=== PATIENT | female | born 1975 | race Caucasian/White ===

== ENCOUNTER 2020-06-16 09:40 | Outpatient (REF) | payer OTHER, SELFPAY ==
[2020-06-16 10:10] LABS: MANUAL DIFF FLAG NO
[2020-06-16 10:14] LABS: Basophils Percent Auto 0.4 % (0-2); Eosinophils Absolute Auto 0.8 X10*3/uL (0.0-0.4); Eosinophils Percent Auto 8.4 % (0-4); Hemoglobin 13.7 g/dl (12.0-16.0); Imm Gran Abs Auto 0.05 X10*3/uL (0.00-0.03); Imm Gran Pct Auto 0.5 % (0.0-0.4); Lymphocytes Absolute Auto 2.6 X10*3/uL (1.2-4.9); Lymphocytes Percent Auto 28.2 % (20-40); Mean Corpuscular HGB Conc 32.6 g/dl (31.0-35.0); Mean Corpuscular Hemoglobin 28.3 pg (27.0-33.0); Mean Corpuscular Volume 86.8 fL (80-98); Mean Platelet Volume 11.6 fL (9.4-12.3); Monocytes Absolute Auto 0.8 X10*3/uL (0.1-1.2); Monocytes Percent Auto 8.3 % (2-11); NRBC Pct Auto 0.4 /100WBC (0.0-0.2); Neutrophils Percent Auto 54.2 % (45-73); Platelet Count 188 X10*3/uL (160-400); Red Blood Count 4.84 X10*6/uL (4.20-5.50); Red Cell Distribution Width 14.3 % (11.0-16.0); White Blood Count 9.2 X10*3/uL (4.8-10.8)
[2020-06-26 22:54] LABS: JCV Antibody NEGATIVE; JCV Index Value 0.08
== END 2020-06-16 09:41 | disposition home or self-care (01) ==
LOC: HO.LAB 09:40
PROVIDERS: PCP Internal Medicine; Visit Provider Psychiatry & Neurology Neurology
DX: G35 Multiple sclerosis (principal)
CPT/HCPCS: 36415; 85025; 86711

== ENCOUNTER 2021-05-01 09:28 | Outpatient (REF) | payer OTHER, SELFPAY ==
[2021-05-01 09:50] LABS: MANUAL DIFF FLAG NO
[2021-05-01 10:03] LABS: Basophils Absolute Auto 0.1 X10*3/uL (0.0-0.2); Basophils Percent Auto 0.7 % (0-2); Eosinophils Absolute Auto 0.9 X10*3/uL (0.0-0.4); Eosinophils Percent Auto 11.9 % (0-4); Hematocrit 40.8 % (37-47); Hemoglobin 13.5 g/dl (12.0-16.0); Imm Gran Abs Auto 0.02 X10*3/uL (0.00-0.03); Imm Gran Pct Auto 0.3 % (0.0-0.4); Lymphocytes Absolute Auto 2.3 X10*3/uL (1.2-4.9); Lymphocytes Percent Auto 31.6 % (20-40); Mean Corpuscular HGB Conc 33.1 g/dl (31.0-35.0); Mean Corpuscular Hemoglobin 28.1 pg (27.0-33.0); Mean Corpuscular Volume 84.8 fL (80-98); Mean Platelet Volume 11.5 fL (9.4-12.3); Monocytes Absolute Auto 0.7 X10*3/uL (0.1-1.2); Monocytes Percent Auto 9.5 % (2-11); Neutrophils Absolute Auto 3.3 X10*3/uL (2.0-8.3); Platelet Count 193 X10*3/uL (160-400); Red Blood Count 4.81 X10*6/uL (4.20-5.50); White Blood Count 7.1 X10*3/uL (4.8-10.8)
[2021-05-08 02:32] LABS: JCV Antibody NEGATIVE
== END 2021-05-01 09:29 | disposition home or self-care (01) ==
LOC: HO.LAB 09:28
PROVIDERS: PCP Internal Medicine; Visit Provider Psychiatry & Neurology Neurology
DX: G35 Multiple sclerosis (principal)
CPT/HCPCS: 36415; 85025; 86711

== ENCOUNTER 2021-12-12 08:30 | Outpatient (REF) | payer OTHER, SELFPAY ==
[2021-12-12 08:53] LABS: MANUAL DIFF FLAG NO
[2021-12-12 08:57] LABS: Basophils Absolute Auto 0.1 X10*3/uL (0.0-0.2); Basophils Percent Auto 0.8 % (0-2); Eosinophils Absolute Auto 0.8 X10*3/uL (0.0-0.4); Eosinophils Percent Auto 9.7 % (0-4); Hematocrit 40.6 % (37.0-47.0); Hemoglobin 13.3 g/dl (12.0-16.0); Imm Gran Abs Auto 0.03 X10*3/uL (0.00-0.03); Imm Gran Pct Auto 0.4 % (0.0-0.4); Lymphocytes Percent Auto 39.2 % (20-40); Mean Corpuscular HGB Conc 32.8 g/dl (31.0-35.0); Mean Corpuscular Hemoglobin 27.8 pg (27.0-33.0); Mean Corpuscular Volume 84.9 fL (80.0-98.0); Mean Platelet Volume 11.2 fL (9.4-12.3); Monocytes Absolute Auto 0.7 X10*3/uL (0.1-1.2); Monocytes Percent Auto 8.8 % (2-11); NRBC Pct Auto 0.4 /100WBC (0.0-0.2); Neutrophils Absolute Auto 3.2 x10*3/uL (2.0-8.3); Neutrophils Percent Auto 41.1 % (45-73); Platelet Count 193 X10*3/uL (160-400); Red Blood Count 4.78 X10*6/uL (4.20-5.50); Red Cell Distribution Width 13.8 % (11.0-16.0); White Blood Count 7.7 X10*3/uL (4.8-10.8)
[2021-12-20 23:18] LABS: JCV Antibody NEGATIVE; JCV Index Value 0.14
== END 2021-12-12 08:31 | disposition home or self-care (01) ==
LOC: HO.LAB 08:30
PROVIDERS: PCP Internal Medicine; Visit Provider Psychiatry & Neurology Neurology
DX: G35 Multiple sclerosis (principal)
CPT/HCPCS: 36415; 85025; 86711

== ENCOUNTER 2022-09-27 07:55 | Outpatient (REF) | payer OTHER, SELFPAY ==
[2022-10-03 22:34] LABS: JCV Antibody NEGATIVE; JCV Index Value 0.09
== END 2022-09-27 07:56 | disposition home or self-care (01) ==
LOC: HO.LAB 07:55
PROVIDERS: PCP Internal Medicine; Visit Provider Psychiatry & Neurology Neurology
DX: G35 Multiple sclerosis (principal)
CPT/HCPCS: 36415; 86711

== ENCOUNTER 2022-12-06 08:11 | Outpatient (REF) | payer OTHER, SELFPAY ==
--- NOTE | ~2022-12-06 | MR_ITS ---
EXAMINATION: MR BRAIN WITHOUT AND WITH CONTRAST CLINICAL INFORMATION: Multiple sclerosis COMPARISON: MRI of the brain with and without contrast 09/07/2018 TECHNIQUE: Multiplanar multisequence MR imaging of the brain was obtained without and following the administration of 10 mL Gadavist intravenous contrast. FINDINGS: BRAIN PARENCHYMA New T2 hyperintense Lesions: None. Enhancing Lesions: None. Reduced Diffusion: None. Overall Disease [place]: >20 lesions. No change in multiple periventricular and juxtacortical white matter lesions compatible with known demyelinating disease. T1 Hypointensities ([place]): <5. Parenchymal Atrophy: None. Callosal Atrophy: None. OTHER: Moderate to severe diffuse paranasal sinus inflammatory disease , progressed compared to prior. There is worsening nasal cavity polyposis extending into the nasopharynx. Small right mastoid fluid. MR/MR head/brain wo/w con IMPRESSION: 1. Stable moderate to severe burden of demyelinating disease in the supratentorial brain. No evidence of active demyelination. 2. Progressive moderate to severe diffuse paranasal sinus inflammatory disease with worsening nasal cavity polyposis.
== END 2022-12-06 08:12 | disposition home or self-care (01) ==
LOC: HO.MRI 08:11
PROVIDERS: PCP Internal Medicine; Visit Provider Psychiatry & Neurology Neurology
DX: G35 Multiple sclerosis (principal)
CPT/HCPCS: 70553; A9585

== ENCOUNTER 2023-11-11 10:10 | Outpatient (REF) | payer OTHER, SELFPAY ==
[2023-11-11 11:52] LABS: Alanine Aminotransferase 43 U/L (0-31); Albumin Level 4.2 g/dL (3.5-5.0); Alkaline Phosphatase 66 U/L (39-117); Aspartate Amino Transferase 28 U/L (5-31); Bilirubin Direct 0.2 mg/dL (0.0-0.5); Bilirubin Total 0.7 mg/dL (0.0-1.0)
[2023-11-14 22:40] LABS: JCV Antibody NEGATIVE; JCV Index Value 0.13
== END 2023-11-11 10:11 | disposition home or self-care (01) ==
LOC: HO.LAB 10:10
PROVIDERS: Registered Nurse; PCP Internal Medicine; Visit Provider Internal Medicine
DX: G35 Multiple sclerosis (principal)
CPT/HCPCS: 36415; 80076; 86711

== ENCOUNTER 2023-12-13 16:17 | Emergency (ER) | payer OTHER, SELFPAY ==
--- NOTE | ~2023-12-13 | CT_ITS ---
EXAMINATION: CT SOFT TISSUE NECK WITH CONTRAST CLINICAL INFORMATION: Reason for Exam left sided neck swelling, recent portacath place COMPARISON: 01/19/2014 TECHNIQUE: Following the intravenous administration of 100 mL of Omnipaque 350 intravenous contrast, helical imaging was performed in the axial plane with generation of coronal and sagittal reformatted images. This CT examination was performed using dose optimization techniques as appropriate, variously including the following: *Automated exposure control *Adjustment of mA and/or kV according to patient size (this includes techniques or standardized protocols for targeted exams where dose is matched to indication/reason for exam; i.e. extremities or head) *Use of iterative reconstruction technique DLP: 865 mGy-cm FINDINGS: There is asymmetric, significant hypoattenuation throughout the right internal jugular vein which is suspicious for venous thrombosis. There is prominent surrounding perivenous edema and stranding. There is some asymmetric thickening of the overlying right sternocleidomastoid muscle, which could represent intramuscular hematoma in the setting of recent Port-A-Cath placement. Multiple asymmetrically enlarged right cervical lymph nodes are favored to be reactive. There is mild mass effect on the airway with leftward deviation. Mild stranding in the right parapharyngeal fat. Retropharyngeal edema is also noted. Bilateral carotid arteries are patent. The nasopharynx, oropharynx, and hypopharynx are patent. The epiglottis appears unremarkable. The mold stamper and repairer spaces appear unremarkable. Multiple small soft tissue nodules are again noted in the parotid glands, suspected to represent lymph nodes. The thyroid gland is unremarkable. The lung apices are clear. Visualized portions of the brain parenchyma are unremarkable. Partial opacification of the right mastoid air cells. Extensive sinonasal polyposis is redemonstrated. There is near complete opacification of the bilateral sphenoid sinuses and ethmoid air cells. Extensive opacification of the right maxillary sinus and slight mucosal thickening of the left maxillary sinus. Complete opacification of the right frontal sinus. Partially opacified left frontal sinus. The mandibular condyles are well-seated in the condylar fossa. No acute fracture is seen. CT/CT soft tissue neck w IV con IMPRESSION: 1. Asymmetric, significant hypoattenuation throughout the right internal jugular vein, suspicious for venous thrombosis. There is prominent surrounding edema and stranding as well as retropharyngeal edema. Slight leftward mass effect on the airway, which remains patent. 2. Asymmetric thickening of the overlying right sternocleidomastoid muscle, which could represent intramuscular hematoma in the setting of recent Port-A-Cath placement. 3. Multiple asymmetrically enlarged right cervical lymph nodes are favored to be reactive. 4. 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 This critical result was discussed with Dr. Fiore on 12/13/2023 10:21 PM, and it was ascertained that the content and urgency of the report was understood at the time of direct communication.
--- NOTE | 2023-12-13 16:56 | ED.GENADULT ---
HPI - General Adult General Chief complaint: General Medical Stated complaint: sever swelling,pain at iv port Time Seen by Provider: 12/13/23 19:12 Source: patient Mode of arrival: ambulatory Limitations: no limitations History of Present Illness HPI narrative: Patient is status post Port-A-Cath replacement on 12/04 for medication treatment for MS as she has difficult veins. Since 12/08 patient noticed increased pain in the neck going all the way to the parotid gland with increased pain on movement and will chewing pain increases no fever no chills Related Data Previous Rx's ?Medication ?Instructions ?Recorded apixaban 5 mg (74 tabs) tablets in 5 mg PO BID #74 ea 12/13/23 a dose pack (Eliquis DVT-PE Treat 30D Start) Allergies Allergy/AdvReac Type Severity Reaction Status Date / Time aspirin [ASA] Allergy Mild HIVES Verified 12/13/23 17:02 amantadine [AMANTADINE] Allergy Unknown SINUSITIS Verified 12/13/23 17:02 ibuprofen Allergy Unknown Sneezing Verified 12/13/23 17:02 modafinil [From PROVIGIL] Allergy Unknown SINUSITIS Verified 12/13/23 17:02 naproxen Allergy Unknown Sneezing Verified 12/13/23 17:02 Butalbital-APAP Allergy Unknown Sneezing Uncoded 12/13/23 17:02 Review of Systems Review of Systems: Yes all other systems are reviewed and are negative PMFSH Social History Social History Smoked in Last 30 Days: No Use of substances other than those prescribed or required for medical reasons: No Advance Directives: No Advance Directives Information Provided: No Patient : No Physical Exam ED Vital Signs: Vital Signs - 24 hr 12/13/23 16:57 12/13/23 19:56 12/13/23 22:42 Temperature 99.6 F 98.6 F 98.5 F Pulse Rate 133 H 104 H 117 H Respiratory Rate 18 20 20 Blood Pressure 182/106 H 141/62 H 153/76 H Pulse Oximetry 95 96 95 Oxygen Delivery Method Room Air Room Air Room Air 12/13/23 22:49 Temperature 98.5 F Pulse Rate 117 H Respiratory Rate 20 Blood Pressure 153/76 H Pulse Oximetry 95 Oxygen Delivery Method Room Air BMI result Body Mass Index 41.3 Appearance: Alert. Oriented X3. No acute distress. Eyes: PERRLA, No Nystagmus ENT: Pharynx normal. Oral Mucosa moist tender external jugular vein and angle of the mandible not very clear tenderness protein gland also no stone palpable in leeanne duct Neck: Normal inspection. Neck supple. CVS: Normal heart rate and rhythm. Pulses normal. Respiratory: No respiratory distress. Equal air entry bilateral, no wheezing/rales/rhonchi Abdomen: Soft and nontender. Bowel sounds are present, no mass palpable, no CVA tenderness Skin: Skin warm and dry. Normal skin color. Normal skin turgor. Extremities: No lower extremity edema. No calf tenderness Neuro: Oriented X 3. No motor deficit. Course Course Course Narrative: This is an RME: Additional HPI, ROS, PE not included below will be deferred to primary provider. RME assessment and note performed by: Genesis Rivera PA-C This is a 19-zult-tql-female, with a hx of MS requiring, presenting to the ER with complaints of right sided neck swelling. Patient states that on December 04, she had to get replacement of right SVC portacath replaced due to malfunctioning. This was [facility] at [facility] by Dr. Narayan. Patient states that she did not noticed symptoms until Friday where she developed chills tenderness, difficulty chewing and swallowing as well as left-sided neck swelling and pain. Discussed case with my attending physician, Dr. Fiore, who recommends IV placement and CT angio chest/neck to rule out occlusion Plan: Labs, CT angio chest, CT angio head and neck Medications Administered Discontinued Medications Generic Name Dose Route Start Last Admin Trade Name Freq PRN Reason Stop Dose Admin Apixaban 10 mg 12/13/23 22:33 12/13/23 22:41 Apixaban 5 Mg Tablet PO 12/13/23 22:34 10 mg ONCE ONE Administration Iohexol 100 ml 12/13/23 19:59 12/13/23 19:59 Iohexol 350 Mg/Ml 100 Ml Infus..Btl IV 12/13/23 20:00 100 ml ONCE ONE Administration Medical Decision Making Medical Decision Making [facility] Narrative: Patient with acute DVT of right IJV after Port-A-Cath placement case discussed with Dr. Espinal vascular advised to start on Eliquis and follow up as outpatient Differential Diagnosis Differential Diagnoses: The differential diagnosis associated with the presentation includes Acute JVD thrombus/parotitis/sialodenitis Admission/Observation Consideration of admission/observation: Escalation of care including admission/observation considered Consult Healthcare Provider Management of the patient was discussed with: Visual Merchandiser Dr. Espinal Lab Data MDM Lab Attestation statement: I reviewed the patient's lab results. 12/13/23 17:31 12/13/23 17:31 Labs: Lab Results 12/13/23 Range/Units 17:31 WBC 13.3 H (4.8-10.8) X10*3/uL RBC 4.92 (4.20-5.50) X10*6/uL Hgb 14.6 (12.0-16.0) g/dl Hct 42.7 (37.0-47.0) % MCV 86.8 (80.0-98.0) fL MCH 29.7 (27.0-33.0) pg MCHC 34.2 (31.0-35.0) g/dl RDW 13.6 (11.0-16.0) % Plt Count 223 (160-400) X10*3/uL MPV 10.8 (9.4-12.3) fL Immature Gran % (Auto) 0.5 H (0.0-0.4) % Neut % (Auto) 65.7 (45-73) % Lymph % (Auto) 21.7 (20-40) % [place] % (Auto) 9.9 (2-11) % Eos % (Auto) 1.7 (0-4) % Baso % (Auto) 0.5 (0-2) % Lymph # (Auto) 2.9 (1.2-4.9) X10*3/uL [place] # (Auto) 1.3 H (0.1-1.2) X10*3/uL Eos # (Auto) 0.2 (0.0-0.4) X10*3/uL Baso # (Auto) 0.1 (0.0-0.2) X10*3/uL Abs Immat Gran (auto) 0.06 H (0.00-0.03) X10*3/uL Absolute Neuts (auto) 8.7 H (2.0-8.3) x10*3/uL Absolute Nucleated RBC 0.000 (0.0-0.012) X10*3/uL Nucleated RBC % (auto) 0.0 (0.0-0.2) /100WBC PT 13.0 (11.1-13.3) SEC INR 1.1 (0.9-1.1) APTT 27.9 (26.0-36.8) SEC Sodium 140 (135-145) mmol/L Potassium 3.8 (3.3-5.1) mmol/L Chloride 103 (96-108) mmol/L Carbon Dioxide 28 (22-29) mmol/L Anion Gap 13 (12-20) BUN 12 (9-16) mg/dL Creatinine 0.74 (0.5-1.4) mg/dL Estim Creat Clear Calc 117.8 Estimated GFR > 60 Random Glucose 126 H (60-115) mg/dL Lactic Acid 1.1 (0.5-2.0) mmol/L Calcium 9.8 (8.4-10.2) mg/dL Magnesium 2.2 (1.6-2.6) mg/dL Total Bilirubin 0.9 (0.0-1.0) mg/dL Direct Bilirubin 0.3 (0.0-0.5) mg/dL AST 13 (5-31) U/L ALT 21 (0-31) U/L Alkaline Phosphatase 58 (39-117) U/L Troponin I High Sens < 2.7 (<3.5-17.0) ng/L Total Protein 7.9 (6.5-8.0) g/dL Albumin 4.3 (3.5-5.0) g/dL Lipase 13 (8-78) U/L Radiology Impression Discussion of test interpretation with radiology: I have reviewed the radiologist's reading. Radiologist Impression: [address] [address] [address] Scan Report Signed Patient: Fatmata Joseph MR#: [id number] : 1975 Acct:[id number] Age/Sex: 48 / F ADM Date: 12/13/23 Loc: .ED Attending Dr: Ordering Physician: Genesis Rivera Date of Service: 12/13/23 Procedure(s): CT soft tissue neck w IV con Accession Number(s): [id number] cc: Genesis Rivera; Davon Michael MD~ EXAMINATION: CT SOFT TISSUE NECK WITH CONTRAST CLINICAL INFORMATION: Reason for Exam left sided neck swelling, recent portacath place COMPARISON: 01/19/2014 TECHNIQUE: Following the intravenous administration of 100 mL of Omnipaque 350 intravenous contrast, helical imaging was performed in the axial plane with generation of coronal and sagittal reformatted images. This CT examination was performed using dose optimization techniques as appropriate, variously including the following: *Automated exposure control *Adjustment of mA and/or kV according to patient size (this includes techniques or standardized protocols for targeted exams where dose is matched to indication/reason for exam; i.e. extremities or head) *Use of iterative reconstruction technique DLP: 865 mGy-cm FINDINGS: There is asymmetric, significant hypoattenuation throughout the right internal jugular vein which is suspicious for venous thrombosis. There is prominent surrounding perivenous edema and stranding. There is some asymmetric thickening of the overlying right sternocleidomastoid muscle, which could represent intramuscular hematoma in the setting of recent Port-A-Cath placement. Multiple asymmetrically enlarged right cervical lymph nodes are favored to be reactive. There is mild mass effect on the airway with leftward deviation. Mild stranding in the right parapharyngeal fat. Retropharyngeal edema is also noted. Bilateral carotid arteries are patent. The nasopharynx, oropharynx, and hypopharynx are patent. The epiglottis appears unremarkable. The application designer spaces appear unremarkable. Multiple small soft tissue nodules are again noted in the parotid glands, suspected to represent lymph nodes. The thyroid gland is unremarkable. The lung apices are clear. Visualized portions of the brain parenchyma are unremarkable. Partial opacification of the right mastoid air cells. Extensive sinonasal polyposis is redemonstrated. There is near complete opacification of the bilateral sphenoid sinuses and ethmoid air cells. Extensive opacification of the right maxillary sinus and slight mucosal thickening of the left maxillary sinus. Complete opacification of the right frontal sinus. Partially opacified left frontal sinus. The mandibular condyles are well-seated in the condylar fossa. No acute fracture is seen. CT/CT soft tissue neck w IV con IMPRESSION: 1. Asymmetric, significant hypoattenuation throughout the right internal jugular vein, suspicious for venous thrombosis. There is prominent surrounding edema and stranding as well as retropharyngeal edema. Slight leftward mass effect on the airway, which remains patent. 2. Asymmetric thickening of the overlying right sternocleidomastoid muscle, which could represent intramuscular hematoma in the setting of recent Port-A-Cath placement. 3. Multiple asymmetrically enlarged right cervical lymph nodes are favored to be reactive. 4. 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 This critical result was discussed with Dr. Fiore on 12/13/2023 10:21 PM, and it was ascertained that the content and urgency of the report was understood at the time of direct communication. Discharge Plan Discharge Clinical Impression: Deep vein thrombosis Patient Disposition: Home, Self-Care Instructions: Deep Vein Thrombosis (ED) Additional Instructions: Take Eliquis as prescribed Follow-up with vascular/PCP Prescriptions: New Eliquis DVT-PE Treat 30D Start 5 mg (74 tabs) tablets,dose pack 5 mg PO BID Qty: 74 0RF Referrals: Rafael Espinal MD [Physician] - 2 weeks Interventions: ED Discharge Assessment Last Done: 12/13/23 22:49 Discharge Date/Time: 12/13/23 22:51 Print Language: Divehi
[2023-12-13 16:57] VITALS: BP 182/106; PULSE 133; RESP 18; TEMP 37.6; O2SAT 95; BMI 41.3
[2023-12-13 17:43] LABS: MANUAL DIFF FLAG NO
[2023-12-13 17:47] LABS: Basophils Absolute Auto 0.1 X10*3/uL (0.0-0.2); Basophils Percent Auto 0.5 % (0-2); Eosinophils Absolute Auto 0.2 X10*3/uL (0.0-0.4); Eosinophils Percent Auto 1.7 % (0-4); Hematocrit 42.7 % (37.0-47.0); Hemoglobin 14.6 g/dl (12.0-16.0); Imm Gran Abs Auto 0.06 X10*3/uL (0.00-0.03); Imm Gran Pct Auto 0.5 % (0.0-0.4); Lymphocytes Absolute Auto 2.9 X10*3/uL (1.2-4.9); Lymphocytes Percent Auto 21.7 % (20-40); Mean Corpuscular HGB Conc 34.2 g/dl (31.0-35.0); Mean Corpuscular Hemoglobin 29.7 pg (27.0-33.0); Mean Corpuscular Volume 86.8 fL (80.0-98.0); Mean Platelet Volume 10.8 fL (9.4-12.3); Monocytes Absolute Auto 1.3 X10*3/uL (0.1-1.2); Monocytes Percent Auto 9.9 % (2-11); Neutrophils Absolute Auto 8.7 x10*3/uL (2.0-8.3); Neutrophils Percent Auto 65.7 % (45-73); Platelet Count 223 X10*3/uL (160-400); Red Blood Count 4.92 X10*6/uL (4.20-5.50); Red Cell Distribution Width 13.6 % (11.0-16.0); White Blood Count 13.3 X10*3/uL (4.8-10.8)
[2023-12-13 17:58] LABS: INTERNATIONAL NORM RATIO 1.1 (0.9-1.1)
[2023-12-13 18:00] LABS: Lactic Acid 1.1 mmol/L (0.5-2.0); Partial Thromboplastin Time 27.9 SEC (26.0-36.8)
[2023-12-13 18:06] LABS: Alanine Aminotransferase 21 U/L (0-31); Albumin Level 4.3 g/dL (3.5-5.0); Alkaline Phosphatase 58 U/L (39-117); Anion Gap 13 (12-20); Aspartate Amino Transferase 13 U/L (5-31); Bilirubin Direct 0.3 mg/dL (0.0-0.5); Bilirubin Total 0.9 mg/dL (0.0-1.0); Blood Urea Nitrogen 12 mg/dL (9-16); Calcium 9.8 mg/dL (8.4-10.2); Carbon Dioxide 28 mmol/L (22-29); Chloride 103 mmol/L (96-108); Creatinine Clr Calc Pharmacy 117.8; Estimated Glomerular Filt Rate > 60; Glucose Random 126 mg/dL (60-115); Lipase 13 U/L (8-78); Magnesium 2.2 mg/dL (1.6-2.6); Potassium 3.8 mmol/L (3.3-5.1); Sodium 140 mmol/L (135-145); Total Protein 7.9 g/dL (6.5-8.0)
[2023-12-13 18:18] LABS: Troponin-I High Sensitivity < 2.7 ng/L (<3.5-17.0)
[2023-12-13 19:56] VITALS: BP 141/62; PULSE 104; RESP 20; TEMP 37; O2SAT 96
[2023-12-13] MEDS: iohexoL 350 MG/ML 100 ML INFUS..BTL IV (19:59)
[2023-12-13] MEDS: Apixaban 5 MG TABLET 10 MG PO (22:41)
[2023-12-13 22:42] VITALS: BP 153/76; PULSE 117; RESP 20; TEMP 36.9; O2SAT 95
[2023-12-13 22:49] VITALS: BP 153/76; PULSE 117; RESP 20; TEMP 36.9; O2SAT 95
== END 2023-12-13 22:51 | disposition home or self-care (01) ==
PROVIDERS: Physician Assistant Medical; Emergency Provider Internal Medicine; PCP Internal Medicine
DX: I82.C11 Acute embolism and thrombosis of right internal jugular vein (principal); M54.2 Cervicalgia; G35 Multiple sclerosis; Z95.828 Presence of other vascular implants and grafts; Z79.82 Long term (current) use of aspirin; Z79.899 Other long term (current) drug therapy
CPT/HCPCS: 36415; 70491; 80048; 80076; 83605; 83690; 83735; 84484; 85025; 85610; 85730; 87040; 99284; Q9967

== ENCOUNTER 2023-12-25 10:00 | Outpatient (AMB) | payer OTHER, SELFPAY ==
[2023-12-25 10:10] VITALS: BP 144/84; PULSE 80; O2SAT 98; BMI 41.5
--- NOTE | 2023-12-25 10:10 | A.OFFPC_ITS ---
Vital Signs 12/25/23 10:10 Height 5 ft 6 in Weight 257 lb BMI 41.5 BP 144/84 H Blood Pressure Location Lt brachial Position Sitting Pulse 80 Pulse Source Pulse Oximeter Pulse Oximetry (%) 98 Oxygen Delivery Method Room Air Intake Visit Reasons: Overdue Annual PE/last seen 2017 ([facility]) Allergies aspirin [ASA] Allergy (Mild, Verified 12/13/23 17:02) HIVES amantadine [AMANTADINE] Allergy (Unknown, Verified 12/13/23 17:02) SINUSITIS ibuprofen Allergy (Unknown, Verified 12/13/23 17:02) Sneezing modafinil [From PROVIGIL] Allergy (Unknown, Verified 12/13/23 17:02) SINUSITIS naproxen Allergy (Unknown, Verified 12/13/23 17:02) Sneezing Butalbital-APAP Allergy (Unknown, Uncoded 12/13/23 17:02) Sneezing Medication List - Last Reconciled 12/25/23 by Davon Michael MD apixaban (Eliquis DVT-PE Treat 30D Start) 5 mg PO BID levocetirizine (Xyzal) 5 mg PO DAILY natalizumab (Tysabri) 300 mg IV Q4W sertraline 50 mg PO DAILY Tobacco use date assessed: 12/25/23 Dental Screening Dental Screen Date: 12/25/23 Did you have a dental visit in the last 12 months?: No Did you have a dental problem in the last 6 months where you did not have access to dental care?: No Was dental information given to patient?: Patient has dentist HPI Overdue Annual PE/last seen 2017 ([facility]) HPI Details 48-year-old morbidly obese female with m ultiple sclerosis and 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 Colonoscopy is up-to-date 06/09/2021. Patient had a Port-A-Cath placed December 04 then complained of neck pain all the way to the parotid gland with right neck swelling developing chills and difficulty chewing and swallowing results showing DVT of the right IJV after Port-A-Cath placement. Patient is placed on Eliquis brain MRI done 01/07/2023 stable moderate to severe burden of demyelinating disease in the supratentorial brain progressive moderate to severe diffuse paranasal sinus inflammatory disease with worsening nasal cavity polyposis. PFSH Family History (Updated 12/25/23 @ 11:02 by Davon Michael MD) Father Hereditary hemochromatosis Paternal Grandmother Breast cancer Paternal Aunt Breast cancer Social History (Updated 12/25/23 @ 11:03 by Davon Michael MD) Alcohol intake: never Patient Tobacco Use Status: Never used Tobacco Current occupational status: employed Cognitive needs: No Hearing needs: No Vision needs: No Questionnaire PHQ-9 Over the last 2 weeks, how often have you been bothered by any of the following problems? 1. Little interest or pleasure in doing things: not at all 2. Feeling down, depressed, or hopeless: not at all 3. Trouble falling or staying asleep, or sleeping too much: not at all 4. Feeling tired or having little energy: not at all 5. Poor appetite or overeating: not at all 6. Feeling bad about yourself - or that you are a failure or have let yourself or your family down: not at all 7. Trouble concentrating on things, such as reading the newspaper or watching television: not at all 8. Moving or speaking so slowly that other people could have noticed. Or the opposite - being so fidgety or restless that you have been moving around a lot more than usual: not at all 9. Thoughts that you would be better off or of hurting yourself in some way: not at all Total score: 0 Source: Developed by Drs. Kain Garsia, Nataliia Crabtree, Ollie Calix and colleagues, with an educational xander from [employer] Thrive Questionnaire Date Thrive assessed: 12/25/23 I am a: Patient What is your living situation today?: I have a steady place to live Within the past 12 months, did the food you bought not last and you didn't have the money to get more?: Never true Within the past 12 months, did you worry whether your food would run out before you got money to buy more?: Never true Do you have trouble paying for medicines?: No Do you have trouble getting transportation to medical appointments?: No Do you have trouble paying your heating and electricity bill?: No Do you have trouble taking care of your child, family member or friend?: No Do you have trouble with day-to-day activities such as bathing, preparing meals, shopping, managing finances, etc.?: No Are you currently unemployed and looking for a job?: No Are you interested in more education?: No Please select the resources that you would like help with: None THRIVE Score: 0 AUDIT C Alcohol Use Questionnaire (AUDIT-C) 1. How often do you have a drink containing alcohol?: Never Total Score: 0 ADDIE-7 AMB Questionnaire ADDIE-7 Date ADDIE - 7 assessed: 12/25/23 Feeling nervous, anxious, or on edge: 0 = Not at all Not being able to stop or control worryin = Not at all Worrying too much about different things: 0 = Not at all Trouble relaxin = Not at all Being so restless that it is hard to sit still: 0 = Not at all Becoming easily annoyed or irritable: 0 = Not at all Feeling afraid as if something awful might happen: 0 = Not at all Total ADDIE-7 score (0-4 normal; 5-9 mild; 10-14 moderate; 15-21 severe): 0 Source: Developed by Drs. Kain Garsia, Nataliia Crabtree, Ollie Calix and colleagues, with an educational xander from [employer] Review of Systems Const Denies poor appetite and Denies weakness Eyes Denies no additional complaints ENT Reports Normal hearing present, Denies dizziness, Denies nasal congestion, Denies tinnitus and Denies sore throat Card Denies chest pain, Denies syncope, Denies rapid heart rate and Denies dyspnea Resp Denies cough and Denies dyspnea GI Denies change in stool character, Reports constipation, Denies diarrhea, Denies nausea and Denies vomiting Denies urinary frequency, Denies difficulty voiding and Denies dysuria Neuro Reports Normal hearing present, Denies confusion, Denies dizziness, Denies syncope and Denies weakness Psych Denies confusion Physical exam (Primary Care) Vital Signs: Last Vital Signs Pulse 80 12/25/23 10:10 BP 144/84 H 12/25/23 10:10 Pulse Ox 98 12/25/23 10:10 Oxygen Delivery Method Room Air 12/25/23 10:10 BMI result Body Mass Index 41.5 Tobacco/Smoking Status: Tobacco use Status Tobacco use date assessed 12/25/23 12/25/23 10:35 Patient Tobacco Use Status Never used Tobacco 12/25/23 10:35 PHQ-9: PHQ-9 Score PHQ-9: Total score 0 12/25/23 10:37 Thrive Assessment: Date of Thrive Assessment Date Thrive assessed 12/25/23 12/25/23 10:35 Const General: No confusion Orientation/consciousness: No confusion HENMT Head: Yes normocephalic Ears: external ears normal and TM's normal bilaterally Face and sinus: Yes normal facial exam Mouth: moist mucous membranes Throat: Yes tonsils normal Eyes Conjunctivae: conjunctivae normal Pupils: Equal, round and reactive pupils present and Pupil accommodation reflex normal Direct Ophthalmoscopy: normal light reflex Neck Neck: No lymphadenopathy Thyroid: Thyroid normal Chest Chest palpation & inspection: normal inspection of the chest Resp Effort & Inspection: normal respiratory effort and no audible wheezes Auscultation: clear to auscultation bilaterally, no crackles, no wheezes and lung sounds not diminished Cardio Rate: regular rate Rhythm: regular rhythm Peripheral pulses: radial pulses present and dorsalis pedis present GI Palpation (GI): no masses Auscultation: normal bowel sounds and normoactive bowel sounds Rectal Exam - Female: deferred Skin General skin exam: no rashes or lesions noted Rashes: no rashes Neuro General: No confusion Cranial nerves: Yes Equal, round and reactive pupils present and Yes Normal hearing present Cognition (Neuro): normal cognition Gait exam (Neuro): Normal gait present Motor exam (neuro): 5/5 motor strength present throughout Deep tendon reflexes (DTR's): Right brachioradialis reflex intensity grade: 2+, Left brachioradialis reflex intensity grade: 2+, Right patellar reflex intensity grade: 2+ and Left patellar reflex intensity grade: 2+ Extrem General: No edema Assessment and Plan Assessment & Plan (1) Annual physical exam: Code(s): Z00.00 - Encounter for general adult medical examination without abnormal findi ngs Plan: Patient is advised to eat healthy, keep well hydrated, keep active and have adequate sleep. (2) Multiple sclerosis: Code(s): G35 - Multiple sclerosis Plan: Patient continue to follow-up with Neurology (3) Internal jugular vein thrombosis: Comment: Novembersymmetric, significant hypoattenuation throughout the right internal jugular vein, suspicious for venous thrombosis. There is prominent surrounding edema and stranding as well as retropharyngeal edema. Slight leftward mass effect on the airway, which remains patent. 2. Asymmetric thickening of the overlying right sternocleidomastoid muscle, which could represent intramuscular hematoma in the setting of recent Port-A-Cath placement. 3. Multiple asymmetrically enlarged right cervical lymph nodes are favored to be reactive. 4. 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 Code(s): I82.C19 - Acute embolism and thrombosis of unspecified internal jugular vein (4) Morbid obesity: Code(s): E66.01 - Morbid (severe) obesity due to excess calories Plan: Patient has been placed on anticoagulation (5) Nasal polyposis: Code(s): J33.9 - Nasal polyp, unspecified (6) Generalized anxiety disorder: Code(s): F41.1 - Generalized anxiety disorder (7) GERD (gastroesophageal reflux disease): Code(s): K21.9 - Gastro-esophageal reflux disease without esophagitis (8) Optic neuritis: Comment: eye [facility] Code(s): H46.9 - Unspecified optic neuritis (9) Hypertension: Code(s): I10 - Essential (primary) hypertension (10) Impaired fasting blood sugar: Code(s): R73.01 - Impaired fasting glucose Orders: Orders Comprehensive Met. Panel Today R73.01 - Impaired fasting glucose Thyroid Stimulating Hormone Today R73.01 - Impaired fasting glucose D Dimer High Sensitivity Today R73.01 - Impaired fasting glucose Hemoglobin A1c Today R73.01 - Impaired fasting glucose Complete Blood Count Auto Diff Today R73.01 - Impaired fasting glucose Lipid Panel Today E78.00 - Pure hypercholesterolemia, unspecified, R73.01 - Impaired fasting glucose Vitamin B12 and Folate Today R73.01 - Impaired fasting glucose Vitamin D 25-OH Total Today R73.01 - Impaired fasting glucose Free T4 (Free Thyroxine) Today R73.01 - Impaired fasting glucose Referrals Hematology & Oncology Referral I82.C19 - Acute embolism and thrombosis of unspecified internal jugular vein Medications: New sertraline 100 mg PO DAILY 30 tabs 0RF F41.1 - Generalized anxiety disorder hydrochlorothiazide 12.5 mg PO DAILY 30 tabs 3RF I10 - Essential (primary) hypertension Coding Level of Care Code Est Pt Prev Care 40-64y(96828) Diagnoses Annual physical exam Z00.00 Multiple sclerosis G35 Internal jugular vein thrombosis I82.C19 Morbid obesity E66.01 Nasal polyposis J33.9 Generalized anxiety disorder F41.1 GERD (gastroesophageal reflux disease) K21.9 Optic neuritis H46.9 Hypertension I10 Impaired fasting blood sugar R73.01
== END 2023-12-25 11:20 | disposition home or self-care (01) ==
PROVIDERS: PCP Internal Medicine; Visit Provider Internal Medicine
DX: Z00.00 Encounter for general adult medical examination without abnormal findings (principal); G35 Multiple sclerosis; I82.C19 Acute embolism and thrombosis of unspecified internal jugular vein; J33.9 Nasal polyp, unspecified; F41.1 Generalized anxiety disorder; K21.9 Gastro-esophageal reflux disease without esophagitis; H46.9 Unspecified optic neuritis; I10 Essential (primary) hypertension; R73.01 Impaired fasting glucose
CPT/HCPCS: 99396

== ENCOUNTER → 2024-01-06 15:02 | Outpatient (BNV) | payer OTHER, SELFPAY | PROVIDERS: PCP Internal Medicine; Referring Provider Internal Medicine; Visit Provider Internal Medicine | DX: I82.C11 Acute embolism and thrombosis of right internal jugular vein (principal) | CPT/HCPCS: 99204; 99214 ==

== ENCOUNTER 2024-04-05 08:00 | Outpatient (REF) | payer OTHER, SELFPAY ==
[2024-04-05 08:18] LABS: MANUAL DIFF FLAG NO
[2024-04-05 09:00] LABS: Basophils Absolute Auto 0.1 X10*3/uL (0.0-0.2); Basophils Percent Auto 0.7 % (0-2); Eosinophils Absolute Auto 0.6 X10*3/uL (0.0-0.4); Hemoglobin 14.3 g/dl (12.0-16.0); Imm Gran Abs Auto 0.04 X10*3/uL (0.00-0.03); Imm Gran Pct Auto 0.5 % (0.0-0.4); Lymphocytes Absolute Auto 2.6 X10*3/uL (1.2-4.9); Lymphocytes Percent Auto 34.1 % (20-40); Mean Corpuscular Hemoglobin 28.7 pg (27.0-33.0); Mean Corpuscular Volume 84.3 fL (80.0-98.0); Mean Platelet Volume 11.3 fL (9.4-12.3); Monocytes Percent Auto 12.9 % (2-11); NRBC Pct Auto 0.4 /100WBC (0.0-0.2); Neutrophils Absolute Auto 3.4 x10*3/uL (2.0-8.3); Neutrophils Percent Auto 43.8 % (45-73); Platelet Count 141 X10*3/uL (160-400); Red Blood Count 4.98 X10*6/uL (4.20-5.50); White Blood Count 7.7 X10*3/uL (4.8-10.8)
[2024-04-05 09:08] LABS: Estimated Average Glucose 131 mg/dL; Hemoglobin A1c % 6.2 % (<6.0)
[2024-04-05 09:18] LABS: D Dimer High Sensitivity < 150 NG/ML
[2024-04-05 09:35] LABS: Alanine Aminotransferase 38 U/L (0-31); Albumin Level 4.1 g/dL (3.5-5.0); Alkaline Phosphatase 61 U/L (39-117); Anion Gap 12 (12-20); Aspartate Amino Transferase 29 U/L (5-31); Bilirubin Total 0.8 mg/dL (0.0-1.0); Blood Urea Nitrogen 13 mg/dL (9-16); Calcium 9.1 mg/dL (8.4-10.2); Carbon Dioxide 31 mmol/L (22-29); Chloride 102 mmol/L (96-108); Cholesterol 200 mg/dL (<200); Estimated Glomerular Filt Rate > 60; Glucose Random 154 mg/dL (60-115); HDL Cholesterol 46 mg/dL (>40); Iron 103 mcg/dL (30-160); LDL Cholesterol Calculated 131 mg/dL (<100); Percent Iron Saturation 39 % (15-50); Sodium 141 mmol/L (135-145); Total Iron Binding Capacity 266 mcg/dL (228-428); Triglycerides 119 mg/dL (<150); Unsaturated Iron Binding 163 ug/dL
[2024-04-05 10:25] LABS: Free T4 (Free Thyroxine) 0.85 ng/dL (0.71-1.85); Vitamin D 25-OH Total 12.1 ng/mL (>30)
[2024-04-05 10:30] LABS: Ferritin 138 ng/mL (10-250); Thyroid Stimulating Hormone 2.15 uIU/mL (0.32-4.0)
[2024-04-05 10:37] LABS: Folate 5.9 ng/mL (> or = 4.0); Vitamin B12 479 pg/mL (200-900)
== END 2024-04-05 08:01 | disposition home or self-care (01) ==
LOC: HO.LAB 08:00
PROVIDERS: Absent Provider Internal Medicine; PCP Internal Medicine; Visit Provider Internal Medicine
DX: R73.01 Impaired fasting glucose (principal); I82.C19 Acute embolism and thrombosis of unspecified internal jugular vein; E78.00 Pure hypercholesterolemia, unspecified
CPT/HCPCS: 36415; 80053; 80061; 82306; 82607; 82728; 82746; 83036; 83540; 84439; 84443; 85025; 85379

== ENCOUNTER 2024-05-14 09:29 | Outpatient (AMB) | payer OTHER, SELFPAY ==
[2024-05-14 09:35] VITALS: BP 140/88; PULSE 82; O2SAT 97; BMI 41.6
--- NOTE | 2024-05-14 09:35 | MHC.PC.OV ---
Vital Signs 05/14/24 09:35 Height 5 ft 6 in Weight 258 lb BMI 41.6 BP 140/88 H Blood Pressure Location Lt brachial Position Sitting Pulse 82 Pulse Source Pulse Oximeter Pulse Oximetry (%) 97 Oxygen Delivery Method Room Air Intake Visit Reasons: Hypertension Allergies aspirin [ASA] Allergy (Mild, Verified 05/14/24 09:35) HIVES amantadine [AMANTADINE] Allergy (Unknown, Verified 05/14/24 09:35) SINUSITIS ibuprofen Allergy (Unknown, Verified 05/14/24 09:35) Sneezing modafinil [From PROVIGIL] Allergy (Unknown, Verified 05/14/24 09:35) SINUSITIS naproxen Allergy (Unknown, Verified 05/14/24 09:35) Sneezing Butalbital-APAP Allergy (Unknown, Uncoded 05/14/24 09:35) Sneezing Tobacco use date assessed: 12/25/23 Dental Screening Dental Screen Date: 05/14/24 Did you have a dental visit in the last 12 months?: No Did you have a dental problem in the last 6 months where you did not have access to dental care?: No Was dental information given to patient?: Patient has dentist HPI Hypertension HPI Details 48-year-old morbidly obese female with multiple sclerosis history of internal jugular vein thrombosis on apixaban generalized anxiety disorder GERD hypertension impaired glucose tolerance last seen in 01/08/2024. Patient's mammogram is due normal colonoscopy in 2020. Review of the notes was seen by hematology oncology in April 15 right internal jugular thrombosis 12/08/2023 this is in relation to MediPort placement. Patient also had a right cervical lymph node most likely reactive and paranasal sinus opacification with sinonasal polyposis. Patient was advised long-term anticoagulation due to MediPort in the right IJ. Patient has also history of hereditary hemochromatosis advised low iron foods avoiding alcohol excess. [facility] Medical History (Updated 05/14/24 @ 18:41 by Davon Michael MD) Impaired fasting blood sugar Hereditary hemochromatosis Port-A-Cath in place Family History Father Hereditary hemochromatosis Paternal Grandmother Breast cancer Paternal Aunt Breast cancer Social History Household Members: Spouse and Family Alcohol intake: never Patient Tobacco Use Status: Never used Tobacco Tobacco use type: Cigarette e-Cigarette/Vaping Use: Never Used Second Hand Smoke Exposure: No service: No Current occupational status: employed Cognitive needs: No Hearing needs: No Vision needs: No Questionnaire PHQ-9 Over the last 2 weeks, how often have you been bothered by any of the following problems? 1. Little interest or pleasure in doing things: not at all 2. Feeling down, depressed, or hopeless: not at all 3. Trouble falling or staying asleep, or sleeping too much: not at all 4. Feeling tired or having little energy: not at all 5. Poor appetite or overeating: not at all 6. Feeling bad about yourself - or that you are a failure or have let yourself or your family down: not at all 7. Trouble concentrating on things, such as reading the newspaper or watching television: not at all 8. Moving or speaking so slowly that other people could have noticed. Or the opposite - being so fidgety or restless that you have been moving around a lot more than usual: not at all 9. Thoughts that you would be better off or of hurting yourself in some way: not at all Total score: 0 Depression Screening Interpretation: Negative Depression Screening Done: Yes Source: Developed by Drs. Kain Garsia, Ollie Joshi and colleagues, with an educational xander from [employer]. Thrive Questionnaire Date Thrive assessed: 12/25/23 AUDIT C Alcohol Use Questionnaire (AUDIT-C) 1. How often do you have a drink containing alcohol?: Never Total Score: 0 ADDIE-7 AMB Questionnaire ADDIE-7 Date ADDIE - 7 assessed: 12/25/23 Source: Developed by Drs. Kain Garsia, Ollie Joshi and colleagues, with an educational xander from [employer]. Physical exam (Primary Care) Vital Signs: Last Vital Signs Pulse 82 05/14/24 09:35 BP 140/88 H 05/14/24 09:35 Pulse Ox 97 05/14/24 09:35 Oxygen Delivery Method Room Air 05/14/24 09:35 BMI result Body Mass Index 41.6 Tobacco/Smoking Status: Tobacco use Status Tobacco use date assessed 12/25/23 05/14/24 09:42 Patient Tobacco Use Status Never used Tobacco 05/14/24 09:42 Tobacco use type Cigarette 05/14/24 09:42 e-Cigarette/Vaping Use Never Used 05/14/24 09:42 PHQ-9: PHQ-9 Score PHQ-9: Total score 0 05/14/24 10:51 Depression Screening Interpretation: Negative Thrive Assessment: Date of Thrive Assessment Date Thrive assessed 12/25/23 05/14/24 09:42 Const General: alert; No acute distress Eyes Conjunctivae: conjunctivae normal Resp Auscultation: clear to auscultation bilaterally Cardio Rate: regular rate Rhythm: regular rhythm GI Inspection: Yes normal to inspection Extrem General: Yes normal to inspection and No edema Office Procedures Flu Questionnaire Does the patient have a severe egg allergy?: No Does the patient have severe life threatening allergies?: No Does the patient have a fever or illness today?: No Has the patient ever had Guillain-[place] Syndrome?: No Has the patient ever had any past reaction to a flu shot?: No Results AMB Hemoglobin A1c AMB Hemoglobin A1c 6.2 % Last Edit by Rosa Herbert CMA on 05/14/24 10:51 Immunizations Fluarix Triv [id number] (PF) 45 mcg (15 mcg x 3)/0.5 mL IM syringe Performing Provider: Davon Michael MD [facility] [place] [facility] Documented (not given) by: Rosa Herbert CMA on 05/14/24 09:43 Reason Not Given: Patient Refused Results Reviewed Results Reviewed: Laboratory Last Values Hgb A1c (Clinic) 6.2 % (4.0-6.0) H 05/14/24 09:55 Coding Level of Care Code Est Pt Level 4 (49524) Complex EM visit Add On G2211 Diagnoses Type 2 diabetes mellitus with hyperglycemia, without long-term current use of insulin E11.65 Diabetes mellitus penitentiary insulin use: without termination clerk use Hypercholesterolemia E78.00 Primary hypertension I10 Hypertension type: primary hypertension Gastroesophageal reflux disease without esophagitis K21.9 Esophagitis presence: without esophagitis 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 Laterality: right Multiple sclerosis G35 Morbid obesity E66.01 Mild intermittent asthma without complication J45.20 Asthma severity: mild Asthma persistence: intermittent Asthma complication type: uncomplicated Assessment & Plan Assessment & Plan (1) Type 2 diabetes mellitus with hyperglycemia: Code(s): E11.65 - Type 2 diabetes mellitus with hyperglycemia Category: Medical Qualifiers: Diabetes mellitus termination clerk insulin use: without penitentiary use Qualified Code(s): E11.65 - Type 2 diabetes mellitus with hyperglycemia Plan: Decrease the amount of carbohydrate intake, pasta, bread, rice and potatoes are all sugar and that is aside from all the sweet stuff, remember that fruits are good but they are Sweet also. Hemoglobin A1c goal of less than 6.5. Patient is under control discussed about eye exam discussed about diet discussed about getting urine tested yearly. (2) Hypercholesterolemia: Code(s): E78.00 - Pure hypercholesterolemia, unspecified Category: Medical Plan: Avoid fried foods, chicken skin, eggs, butter margarine, pastries and meat. Be it pork or beef they have a lot of cholesterol LDL goal of less than 100 and triglyceride of less than 150. (3) Hypertension: Code(s): I10 - Essential (primary) hypertension Category: Medical Qualifiers: Hypertension type: primary hypertension Qualified Code(s): I10 - Essential (primary) hypertension Plan: Continue with blood pressure medication. Decrease salt intake and exercise patient on hydrochlorothiazide 12.5 mg once a day (4) GERD (gastroesophageal reflux disease): Code(s): K21.9 - Gastro-esophageal reflux disease without esophagitis Category: Medical Qualifiers: Esophagitis presence: without esophagitis Qualified Code(s): K21.9 - Gastro-esophageal reflux disease without esophagitis Plan: Avoid the foods that causes that usually spicy foods, tomato products, juices, coffee, soda and foods that your sensitive to. After eating do not lie down, allow 3-4 hours before in lie down. And keep the head of bed above 30 degrees to avoid the acid from going up. (5) Internal jugular vein thrombosis: Comment: Novembersymmetric, significant hypoattenuation throughout the right internal jugular vein, suspicious for venous thrombosis. There is prominent surrounding edema and stranding as well as retropharyngeal edema. Slight leftward mass effect on the airway, which remains patent. 2. Asymmetric thickening of the overlying right sternocleidomastoid muscle, which could represent intramuscular hematoma in the setting of recent Port-A-Cath placement. 3. Multiple asymmetrically enlarged right cervical lymph nodes are favored to be reactive. 4. 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 Code(s): I82.C19 - Acute embolism and thrombosis of unspecified internal jugular vein Category: Medical Qualifiers: Laterality: right Qualified Code(s): I82.C11 - Acute embolism and thrombosis of right internal jugular vein Plan: Patient has seen hematology oncology patient is on anticoagulation and because of the MediPort will have this long-term. (6) Multiple sclerosis: Code(s): G35 - Multiple sclerosis Category: Medical Plan: Continue to follow-up with Neurology as well as treatment. (7) Morbid obesity: Code(s): E66.01 - Morbid (severe) obesity due to excess calories Category: Medical Plan: Diet and exercise (8) Asthma: Code(s): J45.909 - Unspecified asthma, uncomplicated Category: Medical Qualifiers: Asthma severity: mild Asthma persistence: intermittent Asthma complication type: uncomplicated Qualified Code(s): J45.20 - Mild intermittent asthma, uncomplicated Plan: Refill on albuterol done Orders: Orders AMB Hemoglobin A1c Today Z13.9 - Encounter for screening, unspecified Microalbumin, Random (w Creat) 3 Months E11.65 - Type 2 diabetes mellitus with hyperglycemia Creatinine Urine 3 Months E11.65 - Type 2 diabetes mellitus with hyperglycemia Hemoglobin A1c 3 Months E78.00 - Pure hypercholesterolemia, unspecified Influenza [id number] Immunization Today Z23 - Encounter for immunization Lipid Panel 3 Months E78.00 - Pure hypercholesterolemia, unspecified Comprehensive Met. Panel 3 Months E78.00 - Pure hypercholesterolemia, unspecified Medications: New albuterol sulfate 90 mcg/actuation (Proventil HFA) 2 puffs inhalation Q4-6H PRN 8.5 grams 0RF Shortness Of Breath J45.909 - Unspecified asthma, uncomplicated Discontinued apixaban (Eliquis DVT-PE Treat 30D Start) Discontinued Reason: Patient Completed Course 5 mg PO BID 74 ea 0RF
== END 2024-05-14 10:17 | disposition home or self-care (01) ==
PROVIDERS: PCP Internal Medicine; Visit Provider Internal Medicine
DX: E11.65 Type 2 diabetes mellitus with hyperglycemia (principal); I82.C11 Acute embolism and thrombosis of right internal jugular vein; E66.01 Morbid (severe) obesity due to excess calories; Z68.41 Body mass index [BMI] 40.0-44.9, adult; G35 Multiple sclerosis; E78.00 Pure hypercholesterolemia, unspecified; I10 Essential (primary) hypertension; K21.9 Gastro-esophageal reflux disease without esophagitis; J45.20 Mild intermittent asthma, uncomplicated

== ENCOUNTER → 2024-05-14 09:29 | Outpatient (BNVA) | payer OTHER, SELFPAY | PROVIDERS: PCP Internal Medicine; Visit Provider Internal Medicine | DX: E11.65 Type 2 diabetes mellitus with hyperglycemia (principal); E78.00 Pure hypercholesterolemia, unspecified; I10 Essential (primary) hypertension; K21.9 Gastro-esophageal reflux disease without esophagitis; I82.C11 Acute embolism and thrombosis of right internal jugular vein; G35 Multiple sclerosis; E66.01 Morbid (severe) obesity due to excess calories; Z68.41 Body mass index [BMI] 40.0-44.9, adult; J45.20 Mild intermittent asthma, uncomplicated; Z79.01 Long term (current) use of anticoagulants; Z79.899 Other long term (current) drug therapy; Z28.21 Immunization not carried out because of patient refusal | CPT/HCPCS: 83036; 90471; 96127 ==

== ENCOUNTER 2024-06-27 | Outpatient (REF) | payer OTHER, SELFPAY ==
--- NOTE | ~2024-06-27 | MR_ITS ---
EXAMINATION: MR CERVICAL SPINE WITHOUT AND WITH CONTRAST CLINICAL INFORMATION: Follow-up multiple sclerosis. COMPARISON: 07/30/2013 MR cervical TECHNIQUE: MRI of the cervical spine was obtained using routine sequences with and without contrast. Intravenous contrast: Gadavist 10 mL. Examination was performed on a 1.5 Eliza high-field Siemens unit, using standard sequences. FINDINGS: CORONAL ALIGNMENT: -Normal SAGITTAL ALIGNMENT: -Normal. -Normal lordosis. -No subluxation. CRANIOCERVICAL JUNCTION/C1-2 ARTICULATIONS: -Intact and aligned. VERTEBRAL BODIES/BONE MARROW: -No compression deformities, bone marrow edema, or abnormal infiltrating bone marrow signal. DISCS: -There is mild loss of disc height and signal at C5-6. -There is otherwise only mild loss of disc signal with preservation of height. CERVICAL CORD: -There is no cord atrophy, thinning, or expansion. There is no abnormal intra or extra medullary enhancement. -There are numerous T2 signal hyperintense cord lesions: -Right lateral column lesion spanning the C1 level (series 10, images 3-5). -Central cord lesion at the level of the proximal dens (series 10, image 8). -Subtle left posterior column lesion at the superior endplate of C3 (series 10, image 12). -Subtle holocord lesion at the superior endplate of C4 extending caudally to the superior endplate of C6 (series 10, image 16-22). -Right lateral and dorsal column lesion superior one third C7 level, spanning the superior third T1 level (series 10, images 29-32). -There are additional thoracic cord lesions in the upper thoracic spine only seen on the sagittal sequences. -No abnormal enhancing lesion identified to suggest active demyelination. PARAVERTEBRAL SOFT TISSUES: -Normal. Saturation band obscures the thyroid. -Prominent polyploid T2 hyperintense soft tissue in the posterior nasopharynx consistent with polyposis. VISUALIZED INTRACRANIAL STRUCTURES: -Posterior fossa structures normal. Refer to dedicated MR brain performed concurrently. AXIAL DISC SPACE IMAGING: C2-C3: There is mild bilateral facet hypertrophy. There is no central canal or neural foraminal narrowing. C3-C4: Minimal shallow bulging disc without significant mass effect. Mild to moderate bilateral uncinate and facet spurs. No central canal narrowing. There is moderate right and mild left neural foraminal narrowing. C4-C5: Shallow diffuse disc bulge present without significant mass effect. There is no central canal narrowing. Prominent uncinate spurring right greater than left and mild bilateral facet spurring. There is mild to moderate right and mild left neural foraminal narrowing. C5-C6: There is a shallow disc osteophytic bulge at this level, indenting on the ventral thecal sac but not contacting the cord. There is minimal central canal narrowing. Mild bilateral facet spurring, and uncinate spurring right greater than left, resulting in mild to moderate right greater than left neural foraminal narrowing. No central canal or lateral recess narrowing. C6-C7: No disc pathology. No central canal or lateral recess narrowing. Moderate hypertrophic degenerative facet and uncinate changes, contribute to mild to moderate bilateral neural foraminal narrowing. C7-T1: No focal disc pathology. No central canal or lateral recess narrowing. Mild bilateral neural foraminal narrowing secondary to mild facet hypertrophy right greater than left. MR/MR cervical spine wo/w con IMPRESSION: 1. There are numerous demyelinating lesions throughout the cervical and upper thoracic cord as discussed, without enhancing lesion to suggest active demyelination. These appear similar to the prior examination although direct comparison is difficult, as the new Siemens magnet has much better resolution resolution and [id number] than the prior magnet. There is no cord atrophy, thinning, or expansion. 2. Mild spondylosis, stable, without evidence of significant central canal narrowing or nerve root impingement. 3. See above for details and ancillary findings. Electronically signed by: Huy Nelson MD 07/07/2024 11:42 AM [facility]
--- NOTE | ~2024-06-27 | MR_ITS ---
EXAMINATION: MR BRAIN WITHOUT AND WITH CONTRAST CLINICAL INFORMATION: MS, follow-up for disease progression. COMPARISON: Numerous prior exams, most recently 12/06/2022. TECHNIQUE: Multiplanar multisequence MR imaging of the brain was done prior to and following intravenous administration of 10 mL of Gadavist. Demyelinating protocol utilized. Examination was performed on 1.5 Eliza Siemens high-field unit. FINDINGS: There is no diffusion restriction. There is no intracranial hemorrhage, acute infarction, mass effect, or edema. Ventricles, sulci, and cisterns are normal in size and configuration for patient age. No abnormal patterns of atrophy. No abnormal hemosiderin deposition is identified. Tiny old lacunar infarct left cerebellar hemisphere. There are numerous stable predominantly periventricular white matter foci of punctate and confluent T2 signal hyperintensity in a configuration consistent with demyelination. There are greater than 20 lesions. The overall number of lesions appears similar without definite new lesions or enhancing lesion. No diffusion restricting lesion. There are greater than 5 T1 hypointense lesions, as previously. Midline structures demonstrate early callosal volume loss. The pituitary gland appears normal. Posterior fossa structures appear normal with no lesions. Cerebellar tonsils are appropriately located. Major flow voids are preserved within the skull base. The globes and orbital contents demonstrate no abnormalities. There is mildly worsening pansinus disease with complete T2 hyperintense opacification of the frontal, ethmoid, sphenoid, and bilateral maxillary sinuses and nasal cavity. Trace central aeration of the maxillary sinuses. The findings suggest nasal polyposis. Nasal septum is mildly left deviated without spur. There is trace T2 hyperintense right mastoid fluid. Left mastoids and bilateral tympanic cavities are normally aerated. Extracranial soft tissues demonstrate no abnormalities. No suspicious bone marrow changes are evident. Atlantoaxial joint is normal. MR/MR head/brain wo/w con IMPRESSION: 1. No evidence of intracranial hemorrhage, acute infarction, mass effect, or edema. No abnormal intra or extra-axial enhancement identified. 2. Stable moderate to severe burden of demyelinating disease in the supratentorial brain. No evidence of active demyelination or new lesions seen. 3. Mildly worsening severe pansinus disease, consistent with nasal polyposis. 4. Trace right mastoid fluid, unchanged. Electronically signed by: Huy Nelson MD 07/07/2024 11:23 AM [facility]
[2024-06-27] MEDS: gadobutroL 10 ML VIAL IVPUSH (17:20)
== END 2024-06-27 00:01 | disposition home or self-care (01) ==
LOC: HO.MRI
PROVIDERS: PCP Internal Medicine; Visit Provider Registered Nurse
DX: G35 Multiple sclerosis (principal)
CPT/HCPCS: 70553; 72156; A9585

== ENCOUNTER → 2024-06-27 16:51 | Outpatient (BNV) | payer OTHER, SELFPAY | PROVIDERS: PCP Internal Medicine; Visit Provider Radiology Diagnostic Radiology | DX: G35 Multiple sclerosis (principal) | CPT/HCPCS: 70553; 72156 ==

== ENCOUNTER 2024-07-23 13:50 | Outpatient (AMB) | payer OTHER, SELFPAY ==
--- NOTE | 2024-07-23 14:19 | MHC.OFFWIV ---
Intake Vital Signs 07/23/24 14:20 Weight 252 lb BP 140/92 H Blood Pressure Location Rt brachial Position Sitting Pulse 95 Pulse Source Pulse Oximeter Temp 98.1 F Temp Source Oral Pulse Oximetry (%) 96 Oxygen Delivery Method Room Air Intake Visit Reasons: EP SOB, dizzie, weakness, coughing Intake Note: Patient here for cough, fatigue,SOB, Dizzy, chest congestion which started Friday. Patient Tobacco Use Status: Never used Tobacco Allergies aspirin [ASA] Allergy (Mild, Verified 07/23/24 14:21) HIVES amantadine [AMANTADINE] Allergy (Unknown, Verified 07/23/24 14:21) SINUSITIS ibuprofen Allergy (Unknown, Verified 07/23/24 14:21) Sneezing modafinil [From PROVIGIL] Allergy (Unknown, Verified 07/23/24 14:21) SINUSITIS naproxen Allergy (Unknown, Verified 07/23/24 14:21) Sneezing Butalbital-APAP Allergy (Unknown, Uncoded 07/23/24 14:21) Sneezing Do you need a note to return to daycare/school/sports/work: Yes HPI EP SOB, dizzie, weakness, coughing HPI Details This is a 48-year-old female patient who presents to the walk-in clinic today with a 4 day history of cough, intermittent shortness of breath, dizziness, upper airway congestion. Has not necessarily had a fever, however has felt hot/flushed. COVID test at home was negative. Has been taking Tylenol cold/flu, DayQuil/NyQuil, and trying to increase fluid/electrolyte intake. Has an older albuterol inhaler at home, however this is running low. She had 1 episode of vomiting yesterday, however denies any other GI symptoms. Has been out of work and trying to rest at home. had similar illness for 2 days, however denies any known exposure to sick contacts. REPLACED BY [facility] Medical History Impaired fasting blood sugar Hereditary hemochromatosis Port-A-Cath in place Family History Father Hereditary hemochromatosis Paternal Grandmother Breast cancer Paternal Aunt Breast cancer Social History Household Members: Spouse and Family Alcohol intake: never Patient Tobacco Use Status: Never used Tobacco Tobacco use type: Cigarette e-Cigarette/Vaping Use: Never Used Second Hand Smoke Exposure: No service: No Current occupational status: employed Cognitive needs: No Hearing needs: No Vision needs: No Review of Systems Const All systems reviewed & are unremarkable except as noted in HPI and below Physical Exam Vital Signs: Last Vital Signs Temp 98.1 F 07/23/24 14:20 Pulse 95 07/23/24 14:20 BP 140/92 H 07/23/24 14:20 Pulse Ox 95 07/23/24 14:20 Oxygen Delivery Method Room Air 07/23/24 14:20 Const General: cooperative and ill appearing acutely Limitations: no limitations HEENT Head: Yes normal to inspection Ears: hearing grossly normal bilaterally General nose exam: Normal external nose present Face and sinus: Yes normal facial exam Throat: Yes posterior oropharynx normal Neck Neck: Yes no lymphadenopathy Resp Effort & Inspection: normal respiratory effort and Actively coughing Quality: dry Auscultation: clear to auscultation bilaterally Cardio Rate: regular rate Rhythm: regular rhythm Skin General skin exam: no rashes or lesions noted Extrem General: Yes capillary refill normal and Yes no clubbing, cyanosis or edema Psych Appearance: grossly normal Mental Status: mental status grossly normal Speech and movement: Normal speech and movement present Assessment & Plan Assessment & Plan (1) Upper respiratory infection: Code(s): J06.9 - Acute upper respiratory infection, unspecified Qualifiers: URI type: unspecified viral URI Qualified Code(s): J06.9 - Acute upper respiratory infection, unspecified Plan: Symptoms consistent with viral illness. COVID/flu/RSV testing was obtained today, and patient aware she will be notified with results once these are available. We discussed self-limiting nature of viral illnesses and conservative measures for these symptoms, including otc cold/flu medications, rest, hydration, healthy food/vitamin intake. We discussed lack of efficacy with antibiotics for viral illnesses. I do feel she may benefit from short course of benzonatate, and I will also refill her albuterol inhaler. Reviewed indications, use, possible side effects of these medications. Steroids contraindicated in most circumstances per patient due to steroid regimen for her MS. If she does not improve with conservative measures, or if symptoms worsen/new symptoms develop, she can return to the clinic or the emergency department if severe. Patient verbalizes understanding and agrees to plan. Orders: Orders SARS-CoV2/FLU/RSV Today J06.9 - Acute upper respiratory infection, unspecified Medications: New benzonatate Take 1 capsule twice a day as needed for cough for 7 days 100 mg PO BID 7 days PRN 14 caps 0RF cough R05.9 - Cough, unspecified Changed From albuterol sulfate 90 mcg/actuation (Proventil HFA) 2 puffs inhalation Q4-6H PRN 8.5 grams 0RF Shortness Of Breath J45.909 - Unspecified asthma, uncomplicated To albuterol sulfate 90 mcg/actuation 2 puffs inhalation Q4-6H PRN 8.5 grams 0RF Shortness Of Breath J45.909 - Unspecified asthma, uncomplicated Coding Level of Care Code Est Pt Level 4 (96821) Diagnoses Viral upper respiratory tract infection J06.9 URI type: unspecified viral URI
[2024-07-23 14:20] VITALS: BP 140/92; PULSE 95; TEMP 36.7; O2SAT 96
== END 2024-07-23 15:01 | disposition home or self-care (01) ==
PROVIDERS: PCP Internal Medicine; Visit Provider Nurse Practitioner Family
DX: J06.9 Acute upper respiratory infection, unspecified (principal)

== ENCOUNTER 2024-07-23 13:50 | Outpatient (REF) | payer OTHER, SELFPAY ==
[2024-07-23 17:56] LABS: Influenza A PCR POSITIVE (Negative); Influenza B PCR NEGATIVE (Negative); Resp Syncy Virus RNA Qual PCR NEGATIVE (Negative); SARS COV2 PCR INHOUSE NEGATIVE (Negative)
== END 2024-07-23 13:51 | disposition home or self-care (01) ==
LOC: HO.LNP 13:50
PROVIDERS: PCP Internal Medicine; Visit Provider Nurse Practitioner Family
DX: J06.9 Acute upper respiratory infection, unspecified (principal)
CPT/HCPCS: 0241U

== ENCOUNTER 2024-09-07 08:12 | Outpatient (AMB) | payer OTHER, SELFPAY ==
[2024-09-07 08:15] VITALS: BP 142/80; PULSE 69; O2SAT 94; BMI 41.2
--- NOTE | 2024-09-07 08:15 | MHC.PC.OV ---
Vital Signs 09/07/24 08:15 Height 5 ft 6 in Weight 255 lb BMI 41.2 BP 142/80 H Blood Pressure Location Lt brachial Position Sitting Pulse 69 Pulse Source Pulse Oximeter Pulse Oximetry (%) 94 Oxygen Delivery Method Room Air Intake Visit Reasons: 3mth f/u Allergies aspirin [ASA] Allergy (Mild, Verified 09/07/24 08:15) HIVES amantadine [AMANTADINE] Allergy (Unknown, Verified 09/07/24 08:15) SINUSITIS ibuprofen Allergy (Unknown, Verified 09/07/24 08:15) Sneezing modafinil [From PROVIGIL] Allergy (Unknown, Verified 09/07/24 08:15) SINUSITIS naproxen Allergy (Unknown, Verified 09/07/24 08:15) Sneezing Butalbital-APAP Allergy (Unknown, Uncoded 09/07/24 08:15) Sneezing Tobacco use date assessed: 09/07/24 Dental Screening Dental Screen Date: 09/07/24 Did you have a dental visit in the last 12 months?: Yes Did you have a dental problem in the last 6 months where you did not have access to dental care?: No Was dental information given to patient?: Patient has dentist HPI 3mth f/u HPI Details 49-year-old morbidly obese female with a history of multiple sclerosis having diabetes mellitus controlled hypertension hypercholesterolemia asthma and generalized anxiety disorder last seen in April 2024. Patient's mammogram is due colonoscopy had it in 2020. Review of the notes last July 23 was seen in the Urgent Center having coughing diagnosis of upper respiratory tract infection. Noted also an MRI of the cervical spine done in June 27 showing demyelinating lesions throughout the cervical and upper thoracic cord without enhancing lesion to suggest active demyelination. No cord atrophy mild spondylosis without evidence of central canal narrowing or nerve root impingement. Stable moderate to severe burden of demyelinating disease in the supratentorial brain severe pansinus disease consistent with nasal polyposis trace right mastoid fluid. Last complete blood work was done in April 05 with an LDL of 131 low vitamin-D of 12.1. Seeing Dr. Victoria [facility] Medical History Impaired fasting blood sugar Hereditary hemochromatosis Port-A-Cath in place Family History Father Hereditary hemochromatosis Paternal Grandmother Breast cancer Paternal Aunt Breast cancer Social History Household Members: Spouse and Family Alcohol intake: never Patient Tobacco Use Status: Never used Tobacco Tobacco use type: Cigarette e-Cigarette/Vaping Use: Never Used Second Hand Smoke Exposure: No service: No Current occupational status: employed Cognitive needs: No Hearing needs: No Vision needs: No Questionnaire PHQ-9 Over the last 2 weeks, how often have you been bothered by any of the following problems? 1. Little interest or pleasure in doing things: not at all 2. Feeling down, depressed, or hopeless: not at all 3. Trouble falling or staying asleep, or sleeping too much: not at all 4. Feeling tired or having little energy: not at all 5. Poor appetite or overeating: not at all 6. Feeling bad about yourself - or that you are a failure or have let yourself or your family down: not at all 7. Trouble concentrating on things, such as reading the newspaper or watching television: not at all 8. Moving or speaking so slowly that other people could have noticed. Or the opposite - being so fidgety or restless that you have been moving around a lot more than usual: not at all 9. Thoughts that you would be better off or of hurting yourself in some way: not at all Total score: 0 Depression Screening Interpretation: Negative Depression Screening Done: Yes Source: Developed by Drs. Kain Garsia, Nataliia Crabtree, Ollie Calix and colleagues, with an educational xander from [employer]. Thrive Questionnaire Date Thrive assessed: 09/07/24 I am a: Patient What is your living situation today?: I have a steady place to live Within the past 12 months, did the food you bought not last and you didn't have the money to get more?: Never true Within the past 12 months, did you worry whether your food would run out before you got money to buy more?: Never true Do you have trouble paying for medicines?: No Do you have trouble getting transportation to medical appointments?: No Do you have trouble paying your heating and electricity bill?: No Do you have trouble taking care of your child, family member or friend?: No Do you have trouble with day-to-day activities such as bathing, preparing meals, shopping, managing finances, etc.?: No Are you currently unemployed and looking for a job?: No Are you interested in more education?: No Currently or been in a relationship where the following occur: No concerns reported THRIVE Score: 0 AUDIT C Alcohol Use Questionnaire (AUDIT-C) 2. How many drinks containing alcohol do you have on a typical day when you are drinking?: 1 or 2 3. How often do you have six or more drinks on one occasion?: Never Total Score: 0 ADDIE-7 AMB Questionnaire ADDIE-7 Date ADDIE - 7 assessed: 09/07/24 Feeling nervous, anxious, or on edge: 0 = Not at all Not being able to stop or control worryin = Not at all Worrying too much about different things: 0 = Not at all Trouble relaxin = Not at all Being so restless that it is hard to sit still: 0 = Not at all Becoming easily annoyed or irritable: 0 = Not at all Feeling afraid as if something awful might happen: 0 = Not at all Total ADDIE-7 score (0-4 normal; 5-9 mild; 10-14 moderate; 15-21 severe): 0 Source: Developed by Drs. Kain Garsia, Nataliia Crabtree, Ollie Calix and colleagues, with an educational xander from [employer]. Physical exam (Primary Care) Vital Signs: Last Vital Signs Pulse 69 09/07/24 08:15 BP 142/80 H 09/07/24 08:15 Pulse Ox 94 09/07/24 08:15 Oxygen Delivery Method Room Air 09/07/24 08:15 BMI result Body Mass Index 41.2 Tobacco/Smoking Status: Tobacco use Status Tobacco use date assessed 09/07/24 09/07/24 08:17 Patient Tobacco Use Status Never used Tobacco 09/07/24 08:17 Tobacco use type Cigarette 09/07/24 08:17 e-Cigarette/Vaping Use Never Used 09/07/24 08:17 PHQ-9: PHQ-9 Score PHQ-9: Total score 0 09/07/24 08:36 Depression Screening Interpretation: Negative Thrive Assessment: Date of Thrive Assessment Date Thrive assessed 09/07/24 09/07/24 08:17 Currently or been in a relationship where the following occur: No concerns reported Const General: alert; No acute distress Eyes Conjunctivae: conjunctivae normal Resp Auscultation: clear to auscultation bilaterally Cardio Rate: regular rate Rhythm: regular rhythm GI Inspection: Yes normal to inspection Extrem General: Yes normal to inspection and No edema Results AMB Hemoglobin A1c AMB Hemoglobin A1c 6.3 % Last Edit by Rosa Herbert CMA on 09/07/24 08:37 Results Reviewed Results Reviewed: Laboratory Last Values Hgb A1c (Clinic) 6.3 % (4.0-6.0) H 09/07/24 08:17 Coding Level of Care Code Est Pt Level 4 (21961) Complex EM visit Add On G2211 Diagnoses Type 2 diabetes mellitus with hyperglycemia, without long-term current use of insulin E11.65 Diabetes mellitus petroleum terminal plant operator insulin use: without petroleum terminal plant operator use Primary hypertension I10 Hypertension type: primary hypertension Hypercholesterolemia E78.00 Gastroesophageal reflux disease without esophagitis K21.9 Esophagitis presence: without esophagitis Generalized anxiety disorder F41.1 Multiple sclerosis G35 Morbid obesity E66.01 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 Hemoglobin A1c goal of less than 6.5. Patient is diet controlled. (2) Hypertension: Code(s): I10 - Essential (primary) hypertension Category: Medical Qualifiers: Hypertension type: primary hypertension Qualified Code(s): I10 - Essential (primary) hypertension Plan: Continue with blood pressure medication. Decrease salt intake and exercise on hydrochlorothiazide 12.5 mg once a day (3) Hypercholesterolemia: Code(s): E78.00 - Pure hypercholesterolemia, unspecified Category: Medical Plan: Avoid fried foods, chicken skin, eggs, butter margarine, pastries and meat. Be it pork or beef they have a lot of cholesterol LDL goal of less than 100 and triglyceride of less than 150 last blood work was in March having an LDL of 131. (4) GERD (gastroesophageal reflux disease): Code(s): K21.9 - Gastro-esophageal reflux disease without esophagitis Category: Medical Qualifiers: Esophagitis presence: without esophagitis Qualified Code(s): K21.9 - Gastro-esophageal reflux disease without esophagitis Plan: Avoid the foods that causes that usually spicy foods, tomato products, juices, coffee, soda and foods that your sensitive to. After eating do not lie down, allow 3-4 hours before in lie down. And keep the head of bed above 30 degrees to avoid the acid from going up. (5) Generalized anxiety disorder: Code(s): F41.1 - Generalized anxiety disorder Category: Medical Plan: Continue with sertraline (6) Multiple sclerosis: Code(s): G35 - Multiple sclerosis Category: Medical Plan: Patient follows up with Neurology on [facility] (7) Morbid obesity: Code(s): E66.01 - Morbid (severe) obesity due to excess calories Category: Medical Plan: Diet and exercise (8) Internal jugular vein thrombosis: Comment: Novembersymmetric, significant hypoattenuation throughout the right internal jugular vein, suspicious for venous thrombosis. There is prominent surrounding edema and stranding as well as retropharyngeal edema. Slight leftward mass effect on the airway, which remains patent. 2. Asymmetric thickening of the overlying right sternocleidomastoid muscle, which could represent intramuscular hematoma in the setting of recent Port-A-Cath placement. 3. Multiple asymmetrically enlarged right cervical lymph nodes are favored to be reactive. 4. 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 Code(s): I82.C19 - Acute embolism and thrombosis of unspecified internal jugular vein Category: Medical Qualifiers: Laterality: right Qualified Code(s): I82.C11 - Acute embolism and thrombosis of right internal jugular vein Plan: Continue with anticoagulation Orders: Orders AMB Hemoglobin A1c Today Z13.9 - Encounter for screening, unspecified Medications: New lisinopril 10 mg PO DAILY 30 tabs 5RF I10 - Essential (primary) hypertension Discontinued hydrochlorothiazide Discontinued Reason: Doctor's Order 12.5 mg PO DAILY 90 tabs 1RF I10 - Essential (primary) hypertension
== END 2024-09-07 08:58 | disposition home or self-care (01) ==
PROVIDERS: PCP Internal Medicine; Visit Provider Internal Medicine
DX: E11.65 Type 2 diabetes mellitus with hyperglycemia (principal); I10 Essential (primary) hypertension; E78.00 Pure hypercholesterolemia, unspecified; K21.9 Gastro-esophageal reflux disease without esophagitis; F41.1 Generalized anxiety disorder; G35 Multiple sclerosis; E66.01 Morbid (severe) obesity due to excess calories; I82.C11 Acute embolism and thrombosis of right internal jugular vein; Z13.9 Encounter for screening, unspecified

== ENCOUNTER → 2024-09-07 08:12 | Outpatient (BNVA) | payer OTHER, SELFPAY | PROVIDERS: PCP Internal Medicine; Visit Provider Internal Medicine | DX: E11.65 Type 2 diabetes mellitus with hyperglycemia (principal); I10 Essential (primary) hypertension; E78.00 Pure hypercholesterolemia, unspecified; K21.9 Gastro-esophageal reflux disease without esophagitis; F41.1 Generalized anxiety disorder; G35 Multiple sclerosis; E66.01 Morbid (severe) obesity due to excess calories; Z68.41 Body mass index [BMI] 40.0-44.9, adult; I82.C11 Acute embolism and thrombosis of right internal jugular vein; Z79.01 Long term (current) use of anticoagulants; Z79.899 Other long term (current) drug therapy | CPT/HCPCS: 83036; 96127 ==

== ENCOUNTER 2024-09-28 08:06 | Outpatient (REF) | payer OTHER, SELFPAY ==
--- OUTSIDE RECORDS SUMMARY | 2024-09-28 08:35 | XMS_ITS | Continuity of Care Document ---
Author Organization [facility] ter Address [address] [place] [id number]- Care Team Providers Care Product Architect Name Role Phone Davon Michael MD Primary Care Physician Encounter [facility] R [id number] Date(s): 08/02/24 - 09/08/[address] [address]- Attending Physician: Jose Luis Victoria MD Admitting Physician: Jose Luis Victoria MD Referring Physician: Jose Luis Victoria MD Encounter Type: Pre-Outpt Allergies, Adverse Reactions, Alerts Substance Criticality Severity Reaction Reaction Severity Status amantadine Active aspirin Active Provigil Active Mold Active Aspirin/Butalbital/Caffeine Active Animal Dander Active Dust Active Pollen Active Medications dextroamphetamine 10 mg oral tablet 1 tablet = 10 mg, By Mouth, 2 times a day, 0 Refills, Maintenance, 08/17/15 4:10:16 PM EST Start Date: 08/17/15 Status: Ordered Repeat number: 1 lamotrigine 50 mg oral tablet, disintegrating 2 tablet = 100 mg, By Mouth, Daily, # 30 tablet, 0 Refills, Maintenance, 11/05/21 3:07:00 PM EDT, DIS Tablet, Partial fill upon patient request if the prescription is for a schedule II opioid drug. Start Date: 4/18/22 Status: Ordered Quantity: 30.0 Unit: tablet Repeat number: 1 omeprazole 40 mg oral enteric coated capsule 1 capsule = 40 mg, By Mouth, 2 times a day, # 60 capsule, 1 Refills, Maintenance, 08/08/21 2:22:00 PM EST, Suspension, [facility]/pharmacy #[id number], Partial fill upon patient request if the prescription is for a schedule II opioid drug., 167.6, cm, 05/29/21 7:16:00 EST, Height, 115.1, kg, 07/12/21 14:05:00 EST, Dry Weight Start Date: 08/08/21 Status: Ordered Quantity: 60.0 Unit: capsule Repeat number: 2 ProAir HFA 90 mcg/inh inhalation aerosol with adapter 2, puffs, Inhalation, Every 4 hours, PRN, # 1 Gm, Refills 11, Tot. Refills 11, Maintenance, 05/08/17 8:35:26 AM EDT, Aerosol, Route to Pharmacy Electronically, [id number], [facility]/pharmacy #[id number] Start Date: 05/08/17 Status: Ordered Quantity: 1.0 Unit: g Repeat number: 12 sertraline 100 mg oral tablet 1 tablet = 100 mg, By Mouth, Daily, # 30 tablet, 0 Refills, Maintenance, 05/29/21 7:30:00 AM EST, Tablet, Partial fill upon patient request if the prescription is for a schedule II opioid drug. Start Date: 05/29/21 Status: Ordered Quantity: 30.0 Unit: tablet Repeat number: 1 Tri-Previfem oral tablet 1 tablet, By Mouth, Daily, # 28 tablet, 0 Refills, Maintenance, 05/21/19 3:39:27 PM EDT, Tablet Start Date: 05/21/19 Status: Ordered Quantity: 28.0 Unit: tablet Repeat number: 1 Tylenol 325 mg oral tablet 2 tablet = 650 mg, By Mouth, Every 4 hours, PRN Pain, # 120 tablet, 0 Refills, Maintenance, 05/04/13 4:46:28 PM EDT, Tablet Start Date: 05/04/13 Status: Ordered Quantity: 120.0 Unit: tablet Repeat number: 1 Tysabri = 300 mg, IV Infusion, once every 28 days, 0 Refills, Maintenance, 05/04/13 4:46:37 PM EDT Start Date: 05/04/13 Status: Ordered Repeat number: 1 Xyzal 5 mg oral tablet 1 tablet = 5 mg, By Mouth, Daily before dinner, 0 Refills, Maintenance, 05/21/19 3:40:04 PM EDT Start Date: 05/21/19 Status: Ordered Repeat number: 1 Problem List Condition Confirmation Course Effective Dates Status Health St [facility] Informant Severe obesity Confirmed Active Social History Social History Type Response Smoking Status Never smoker; Tobacc o user in household: No entered on: 08/17/15 Sex Sex Representation Female (finding) Patient Care team information Care Team Personnel Name: Jillian Camargo RN Position: S RN Member Role: Primary Care Nurse Name: Jovita Tejada RN Position: [facility] Onco RN Member Role: Primary Care Nurse Name: Guillermina Boothe RN Position: S RN Member Role: Primary Care Nurse Name: Genesis Ordoñez RN Position: S RN Member Role: Primary Care Nurse Name: Adilene Seaman RN Position: [facility] AMB Nurse Member Role: Primary Care Nurse Name: Peggy Gudino RN Position: S RN Member Role: Primary Care Nurse Name: Davon Michael MD Position: Reference Physician Member Role: PCP Address: [address] [place] [address] Telecom: Name: Brent Noonan RN Position: S RN Member Role: Primary Care Nurse Name: Azul Jordan RN Position: [facility] OB RN Member Role: Primary Care Nurse Name: Francine Love RN Position: [facility] SN RN Member Role: Primary Care Nurse Care Team Related Persons Name: BLESSING HIGHTOWER Name: NEY HIGHTOWER Insurance Providers Guarantor name: NEFTALI KATJA Health Plan Information #: 2 Payer: [facility] FF NON BHP HMO Member Number: [id number] Policy Number: NA Group Number: [id number] Health Plan Information #: 1 Payer: [employer] H[employer] HP Member Number: [id number] Policy Number: NA Group Number: [id number]
[2024-09-28 10:25] LABS: Alanine Aminotransferase 40 U/L (0-31); Albumin Level 4.2 g/dL (3.5-5.0); Alkaline Phosphatase 64 U/L (39-117); Anion Gap 13 (12-20); Aspartate Amino Transferase 34 U/L (5-31); Bilirubin Total 0.6 mg/dL (0.0-1.0); Blood Urea Nitrogen 13 mg/dL (9-16); Carbon Dioxide 25 mmol/L (22-29); Chloride 111 mmol/L (96-108); Cholesterol 192 mg/dL (<200); Estimated Glomerular Filt Rate > 60; Glucose Random 106 mg/dL (60-115); HDL Cholesterol 54 mg/dL (>40); LDL Cholesterol Calculated 116 mg/dL (<100); Potassium 4.5 mmol/L (3.3-5.1); Sodium 144 mmol/L (135-145); Total Protein 7.5 g/dL (6.5-8.0); Triglycerides 112 mg/dL (<150)
== END 2024-09-28 08:07 | disposition home or self-care (01) ==
LOC: HO.LAB 08:06
PROVIDERS: PCP Internal Medicine; Visit Provider Internal Medicine
DX: E78.00 Pure hypercholesterolemia, unspecified (principal)
CPT/HCPCS: 36415; 80053; 80061

== ENCOUNTER 2024-12-17 08:23 | Outpatient (AMB) | payer OTHER, SELFPAY ==
[2024-12-17 08:31] VITALS: BP 148/82; PULSE 81; O2SAT 98; BMI 42.9
--- NOTE | 2024-12-17 08:31 | A.OFFPC_ITS ---
Vital Signs 12/17/24 08:31 Height 5 ft 6 in Weight 266 lb BMI 42.9 BP 148/82 H Blood Pressure Location Lt brachial Position Sitting Pulse 81 Pulse Source Pulse Oximeter Pulse Oximetry (%) 98 Oxygen Delivery Method Room Air Intake Visit Reasons: DM Allergies aspirin [ASA] Allergy (Mild, Verified 12/17/24 08:31) HIVES amantadine [AMANTADINE] Allergy (Unknown, Verified 12/17/24 08:31) SINUSITIS ibuprofen Allergy (Unknown, Verified 12/17/24 08:31) Sneezing modafinil [From PROVIGIL] Allergy (Unknown, Verified 12/17/24 08:31) SINUSITIS naproxen Allergy (Unknown, Verified 12/17/24 08:31) Sneezing Butalbital-APAP Allergy (Unknown, Uncoded 12/17/24 08:31) Sneezing Medication List - Last Reconciled 12/17/24 by Davon Michael MD albuterol sulfate 90 mcg/actuation 2 puffs inhalation Q4-6H PRN apixaban (Eliquis) 5 mg PO BID levocetirizine (Xyzal) 5 mg PO DAILY lisinopril 10 mg PO DAILY natalizumab (Tysabri) 300 mg IV Q4W sertraline 100 mg PO DAILY simvastatin 5 mg PO BEDTIME Tobacco use date assessed: 09/07/24 Dental Screening Dental Screen Date: 12/17/24 Did you have a dental visit in the last 12 months?: No Did you have a dental problem in the last 6 months where you did not have access to dental care?: No Was dental information given to patient?: Patient has dentist [facility] Medical History Impaired fasting blood sugar Hereditary hemochromatosis Port-A-Cath in place Family History Father Hereditary hemochromatosis Paternal Grandmother Breast cancer Paternal Aunt Breast cancer Social History Household Members: Spouse and Family Alcohol intake: never Patient Tobacco Use Status: Never used Tobacco Tobacco use type: Cigarette e-Cigarette/Vaping Use: Never Used Second Hand Smoke Exposure: No service: No Current occupational status: employed Cognitive needs: No Hearing needs: No Vision needs: Yes Questionnaire PHQ-9 Over the last 2 weeks, how often have you been bothered by any of the following problems? 1. Little interest or pleasure in doing things: not at all 2. Feeling down, depressed, or hopeless: not at all 3. Trouble falling or staying asleep, or sleeping too much: not at all 4. Feeling tired or having little energy: not at all 5. Poor appetite or overeating: not at all 6. Feeling bad about yourself - or that you are a failure or have let yourself or your family down: not at all 7. Trouble concentrating on things, such as reading the newspaper or watching television: not at all 8. Moving or speaking so slowly that other people could have noticed. Or the opposite - being so fidgety or restless that you have been moving around a lot more than usual: not at all 9. Thoughts that you would be better off or of hurting yourself in some way: not at all Total score: 0 Depression Screening Interpretation: Negative Depression Screening Done: Yes Source: Developed by Drs. Kain Garsia, Nataliia Crabtree, Ollie Calix and colleagues, with an educational xander from [employer]. Thrive Questionnaire Date Thrive assessed: 09/07/24 I am a: Patient What is your living situation today?: I have a steady place to live Within the past 12 months, did the food you bought not last and you didn't have the money to get more?: I choose not to answer this question Within the past 12 months, did you worry whether your food would run out before you got money to buy more?: I choose not to answer this question Do you have trouble paying for medicines?: I choose not to answer this question Do you have trouble getting transportation to medical appointments?: I choose not to answer this question Do you have trouble paying your heating and electricity bill?: I choose not to answer this question Do you have trouble taking care of your child, family member or friend?: I choose not to answer this question Do you have trouble with day-to-day activities such as bathing, preparing meals, shopping, managing finances, etc.?: I choose not to answer this question Are you currently unemployed and looking for a job?: I choose not to answer this question Are you interested in more education?: I choose not to answer this question Please select the resources that you would like help with: None Currently or been in a relationship where the following occur: I choose not to answer THRIVE Score: 0 AUDIT C Alcohol Use Questionnaire (AUDIT-C) 1. How often do you have a drink containing alcohol?: Never 3. How often do you have six or more drinks on one occasion?: Never Total Score: 0 ADDIE-7 AMB Questionnaire ADDIE-7 Date ADDIE - 7 assessed: 09/07/24 Feeling nervous, anxious, or on edge: 0 = Not at all Not being able to stop or control worryin = Not at all Worrying too much about different things: 0 = Not at all Trouble relaxin = Not at all Being so restless that it is hard to sit still: 0 = Not at all Becoming easily annoyed or irritable: 0 = Not at all Feeling afraid as if something awful might happen: 0 = Not at all Total ADDIE-7 score (0-4 normal; 5-9 mild; 10-14 moderate; 15-21 severe): 0 Source: Developed by Drs. Kain Garsia, Nataliia Crabtree, Ollie Calix and colleagues, with an educational xander from [employer]. Physical exam (Primary Care) Vital Signs: Last Vital Signs Pulse 81 12/17/24 08:31 BP 148/82 H 12/17/24 08:31 Pulse Ox 98 12/17/24 08:31 Oxygen Delivery Method Room Air 12/17/24 08:31 BMI result Body Mass Index 42.9 Tobacco/Smoking Status: Tobacco use Status Tobacco use date assessed 09/07/24 12/17/24 08:37 Patient Tobacco Use Status Never used Tobacco 12/17/24 08:37 Tobacco use type Cigarette 12/17/24 08:37 e-Cigarette/Vaping Use Never Used 12/17/24 08:37 PHQ-9: PHQ-9 Score PHQ-9: Total score 0 12/17/24 09:24 Depression Screening Interpretation: Negative Thrive Assessment: Date of Thrive Assessment Date Thrive assessed 09/07/24 12/17/24 08:37 Currently or been in a relationship where the following occur: I choose not to answer Const General: alert; No acute distress Eyes Conjunctivae: conjunctivae normal Resp Auscultation: clear to auscultation bilaterally Cardio Rate: regular rate Rhythm: regular rhythm GI Inspection: Yes normal to inspection Extrem General: Yes normal to inspection and No edema Results AMB Hemoglobin A1c AMB Hemoglobin A1c 5.8 % Last Edit by Rosa Herbert CMA on 12/17/24 09 :25 Results Reviewed Results Reviewed: Laboratory Last Values Hgb A1c (Clinic) 5.8 % (4.0-6.0) 12/17/24 08:53 Coding Level of Care Code Est Pt Level 4 (82148) Complex EM visit Add On G2211 Diagnoses Type 2 diabetes mellitus with hyperglycemia, without long-term current use of insulin E11.65 Diabetes mellitus half-way insulin use: without buttermaker helper use Primary hypertension I10 Hypertension type: primary hypertension Hypercholesterolemia E78.00 Mild intermittent asthma without complication J45.20 Asthma complication type: uncomplicated Asthma persistence: intermittent Asthma severity: mild Gastroesophageal reflux disease without esophagitis K21.9 Esophagitis presence: without esophagitis Multiple sclerosis G35 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 Code(s): E11.65 - Type 2 diabetes mellitus with hyperglycemia Category: Medical Qualifiers: Diabetes mellitus buttermaker helper insulin use: without buttermaker helper use Qualified Code(s): E11.65 - Type 2 diabetes mellitus with hyperglycemia Plan: Decrease the amount of carbohydrate intake, pasta, bread, rice and potatoes are all sugar and that is aside from all the sweet stuff, remember that fruits are good but they are Sweet also. Hemoglobin A1c goal of less than 6.5 presently diet controlled (2) Hypertension: Code(s): I10 - Essential (primary) hypertension Category: Medical Qualifiers: Hypertension type: primary hypertension Qualified Code(s): I10 - Essential (primary) hypertension Plan: Continue with blood pressure medication. Decrease salt intake and exercise on lisinopril 10 mg once a day (3) Hypercholesterolemia: Code(s): E78.00 - Pure hypercholesterolemia, unspecified Category: Medical Plan: Avoid fried foods, chicken skin, eggs, butter margarine, pastries and meat. Be it pork or beef they have a lot of cholesterol LDL goal of less than 100 and triglyceride of less than 150 patient presently is not on any medication. (4) Asthma: Code(s): J45.909 - Unspecified asthma, uncomplicated Category: Medical Qualifiers: Asthma complication type: uncomplicated Asthma persistence: intermittent Asthma severity: mild Qualified Code(s): J45.20 - Mild intermittent asthma, uncomplicated Plan: Continue with albuterol inhaler as needed (5) GERD (gastroesophageal reflux disease): Code(s): K21.9 - Gastro-esophageal reflux disease without esophagitis Category: Medical Qualifiers: Esophagitis presence: without esophagitis Qualified Code(s): K21.9 - Gastro-esophageal reflux disease without esophagitis Plan: Avoid the foods that causes that usually spicy foods, tomato products, juices, coffee, soda and foods that your sensitive to. After eating do not lie down, allow 3-4 hours before in lie down. And keep the head of bed above 30 degrees to avoid the acid from going up. (6) Multiple sclerosis: Code(s): G35 - Multiple sclerosis Category: Medical Plan: Patient follows up with [facility] on [facility] (7) Internal jugular vein thrombosis: Comment: Novembersymmetric, significant hypoattenuation throughout the right internal jugular vein, suspicious for venous thrombosis. There is prominent surrounding edema and stranding as well as retropharyngeal edema. Slight leftward mass effect on the airway, which remains patent. 2. Asymmetric thickening of the overlying right sternocleidomastoid muscle, which could represent intramuscular hematoma in the setting of recent Port-A-Cath placement. 3. Multiple asymmetrically enlarged right cervical lymph nodes are favored to be reactive. 4. 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 Code(s): I82.C19 - Acute embolism and thrombosis of unspecified internal jugular vein Category: Medical Qualifiers: Laterality: right Qualified Code(s): I82.C11 - Acute embolism and thrombosis of right internal jugular vein Plan: Patient has seen hematology oncology so long as the IJ Port-A-Cath continue with anticoagulation with Eliquis 5 mg twice a day. Patient is positive for hereditary hemochromatosis (8) Generalized anxiety disorder: Code(s): F41.1 - Generalized anxiety disorder Category: Medical Plan: Continue with present medication and discussed about counseling (9) LFT elevation: Code(s): R79.89 - Other specified abnormal findings of blood chemistry Category: Medical (10) Breast cancer screening by mammogram: Code(s): Z12.31 - Encounter for screening mammogram for malignant neoplasm of breast Category: Medical Plan History of Present Illness The patient is a 49-year-old female presenting for the follow-up of chronic medical conditions and health maintenance. She has been diagnosed with systemic lupus erythematosus, which has been managed over time. She has diabetes mellitus controlled currently with dietary measures and sees a goal for hemoglobin A1c of less than 6.5. The last reading was at 6.3 as of August 2024. The patient has multiple sclerosis managed under neurology care, generalized anxiety disorder, and gastroesophageal reflux disease, which she notes is stable. The patient has a history of hypertension and hypercholesterolemia, for which she has not yet commenced specific medications despite an LDL level of 116. Moreover, a history of asthma remains well-controlled through albuterol inhaler usage on an as-needed basis. 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 She reports 11-pound weight gain since August, alongside mild thrombocytopenia identified in October 13 bloodwork submissions, but without any significant complications. Liver function tests noted slightly elevated enzyme levels, and the patient plans for further investigation through future ultrasound and bloodwork. 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 Health Maintenance - Hemoglobin A1c goal: less than 6.5 - Liver ultrasound and repeat bloodwork in one month - Bloodwork re-evaluation in three months - Mammogram was last performed in January 2023; next mammogram scheduled - Management plan includes using lisinopril 20 mg for blood pressure control - Weight management and diabetes control with diet focus and use of Mounjaro - Discussion about cholesterol management with statin initiation Social History - Family: Has children, one son graduating from medical school; another son graduated in computer science and physics studying online. - Functional Status: Reports difficulty with work attendance due to illness. - Weight management: Concern for weight gain noted as more than 11 pounds recently, aiming for reduction. - Nutritional Intake: Advised dietary control for diabetes management. Review of Systems - General: Reports weight gain of 11 lbs since August. - Cardiovascular: Denies chest pain; reports well-controlled blood pressure with medication adjustment to lisinopril. - Respiratory: Denies current asthma symptoms; maintenance with albuterol inhaler as needed. - Gastrointestinal: Denies current symptoms of GERD following previous review. - Neurological: Denies changes in MS symptoms and sees neurology for ongoing management. - Psychological: Reports generalized anxiety disorder; manages without recent issues of exacerbation. - Hematological: History of internal jugular vein thrombosis with anticoagulation management. Physical Exam - Vitals- Blood pressure noted with management adjustments to lisinopril. - General- No objective findings specified during this session. Results - Labs: October 13 bloodwork indicated slightly low platelet count; liver enzymes mild elevation at 40 units; LDL cholesterol at 116. - Diagnostics: Liver ultrasound pending, recent mammogram results dated January 2023. Plan 1. 5. Blood pressure plan involves increased lisinopril, echoing a necessity for enhanced control. Initiating statins will form part of a structured strategy to lower LDL cholesterol levels seen at 116 to align with recommended diabetic standards. Asthma management continues with albuterol available for any episodic relief needed. I will track the results of the liver ultrasound alongside regular hematological reviews due to her internal thrombosis history. For weight management, introducing Mounjaro complements her diabetes care, with precise attention to dietary education provided. Upcoming mammograms and ultrasound evaluations will be essential in tracking health promotion outcomes.: Patient was informed and verbally consented to the use of an ambient scribe for clinic note documentation during this visit. Discussion Notes I discussed with the patient the importance of maintaining rigorous control over her chronic medical conditions, particularly focusing on diet and lifestyle interventions to support weight reduction and lower her hemoglobin A1c below 6.5. We reviewed the necessity of continuing her antihypertensive regimen with an updated lisinopril dose. I explained the advantages of initiating statins for cholesterol management, particularly given her diabetes mellitus diagnosis. Mounjaro was proposed as an adjunctive measure in managing her diabetes and weight, with acknowledgment that further adjustments may be necessary based on response and tolerance, noting its novelty and lack of long-term data. I addressed the importance of regular follow-up and symptom awareness in managing diabetes, asthma, and overall cardiovascular risk, including a future visit to monitor progress. Procedural elements such as mammogram scheduling and abdominal ultrasound for liver surveillance were also discussed, aiming to preemptively manage her slightly elevated liver enzymes. Patient Instructions - Take lisinopril as directed each day. - Follow dietary guidelines to control diabetes and work towards weight loss. - Monitor asthma symptoms and use albuterol as needed. - Ensure adherence to mammogram scheduling and follow up for the ultrasound. - Start on the lowest dose of cholesterol medication at bedtime as instructed. - Expect a call for scheduling liver ultrasound, and remember to get bloodwork done in three months. - If experiencing significant side effects, contact immediately. Orders: Orders Hepatitis B,C Profile 3 Months R79.89 - Other specified abnormal findings of blood chemistry AMB Hemoglobin A1c Today Z13.9 - Encounter for screening, unspecified US abdomen complete Today R79.89 - Other specified abnormal findings of blood chemistry Comprehensive Met. Panel 3 Months E78.00 - Pure hypercholesterolemia, unspecified MM tomosynthesis screening BI Today Z12.31 - Encounter for screening mammogram for malignant neoplasm of breast Medications: New simvastatin 5 mg PO BEDTIME 30 tabs 4RF E78.00 - Pure hypercholesterolemia, unspecified tirzepatide (Mounjaro) for 4 weeks 2.5 mg (0.5 mL) subcut QWEEK 2 mL 2RF E11.65 - Type 2 diabetes mellitus with hyperglycemia Changed From lisinopril 10 mg PO DAILY 30 tabs 5RF I10 - Essential (primary) hypertension To lisinopril 20 mg PO DAILY 30 tabs 5RF I10 - Essential (primary) hypertension Refilled sertraline 100 mg PO DAILY 90 tabs 2RF F41.1 - Generalized anxiety disorder
== END 2024-12-17 09:09 | disposition home or self-care (01) ==
LOC: HO.HMCH 08:24
PROVIDERS: PCP Internal Medicine; Visit Provider Internal Medicine
DX: E11.65 Type 2 diabetes mellitus with hyperglycemia (principal); G35 Multiple sclerosis; I82.C11 Acute embolism and thrombosis of right internal jugular vein; I10 Essential (primary) hypertension; E78.00 Pure hypercholesterolemia, unspecified; J45.20 Mild intermittent asthma, uncomplicated; K21.9 Gastro-esophageal reflux disease without esophagitis; F41.1 Generalized anxiety disorder; R79.89 Other specified abnormal findings of blood chemistry; Z12.31 Encounter for screening mammogram for malignant neoplasm of breast

== ENCOUNTER → 2024-12-17 08:23 | Outpatient (BNVA) | payer OTHER, SELFPAY | PROVIDERS: PCP Internal Medicine; Visit Provider Internal Medicine | DX: E11.65 Type 2 diabetes mellitus with hyperglycemia (principal); I10 Essential (primary) hypertension; E78.00 Pure hypercholesterolemia, unspecified; J45.20 Mild intermittent asthma, uncomplicated; K21.9 Gastro-esophageal reflux disease without esophagitis; G35 Multiple sclerosis; I82.C11 Acute embolism and thrombosis of right internal jugular vein; F41.1 Generalized anxiety disorder; R79.89 Other specified abnormal findings of blood chemistry; Z79.01 Long term (current) use of anticoagulants; Z79.899 Other long term (current) drug therapy; Z13.31 Encounter for screening for depression | CPT/HCPCS: 83036; 96127 ==

== ENCOUNTER 2025-02-07 08:21 | Outpatient (AMB) | payer OTHER, SELFPAY ==
--- NOTE | 2025-02-07 08:30 | A.OFFVIS_ITS ---
Vital Signs 02/07/25 08:30 Height 5 ft 6 in Intake Visit Reasons: 6 mnts f/u Allergies aspirin (ASA) Allergy (Mild, Verified 02/07/25 08:35) HIVES amantadine (AMANTADINE) Allergy (Unknown, Verified 02/07/25 08:35) SINUSITIS ibuprofen Allergy (Unknown, Verified 02/07/25 08:35) Sneezing modafinil (From PROVIGIL) Allergy (Unknown, Verified 02/07/25 08:35) SINUSITIS naproxen Allergy (Unknown, Verified 02/07/25 08:35) Sneezing Butalbital-APAP Allergy (Unknown, Uncoded 02/07/25 08:35) Sneezing Medication List - Last Reconciled 02/07/25 by Stacey Dixon, UMESH albuterol sulfate 90 mcg/actuation 2 puffs inhalation Q4-6H PRN apixaban (Eliquis) 5 mg PO DAILY dextroamphetamine sulfate 10 mg PO BID fluticasone propion-salmeterol 100-50 mcg/dose (Advair Diskus) 1 inh inhalation BID lamotrigine 100 mg PO DAILY levocetirizine (Xyzal) 5 mg PO DAILY lisinopril 20 mg PO DAILY meclizine 25 mg PO BID PRN natalizumab (Tysabri) 300 mg IV Q4W sertraline 100 mg PO DAILY simvastatin 5 mg PO BEDTIME tirzepatide (Mounjaro) 2.5 mg (0.5 mL) subcut QWEEK HPI Comments Details: She was doing okay. MS stable, no new symptoms. Doing okay with Tysabri infusions, last infusion was 02/06/2025. Still working 2 jobs. Started new position at job about 2 months ago and stress is better. Memory was okay, some word finding and speech difficulties with stress. Sleep was okay, but tired during the day. Mood was okay. No significant dizziness. No vision changes. Eyes are sensitive to bright light including sun and can trigger headaches. No significant headaches recently. Has some trouble with left leg, stumbles at times. No falls. Has u/s scheduled for 02/10/2025 for elevated LFTs. Was found to have blood clot and got new port. Following with hematology, taking Eliquis daily day. Was off Tysabri from 07/2022 to 10/2022, now back on it since 10/28/22 without side effects. Some increased urinary frequency. No incontinence. Chronic sinus issues/allergies, has seen ENT and had several sinus surgeries in past. Moodiness is better. LBP is mostly under control. Has Karthikeyan at home and trying to start exercise routine. Was having some emotional issues with anger and some depression issues but that is better. Cognitive issues are unchanged a nd has to refocus. Needs a calendar and a list of to do things or she forgets. Fatigue is always there and unchanged. Headaches are okay. She has relapsing remitting multiple sclerosis of more than 10 years duration. MRI in October 2011 showed numerous periventricular and subcortical white matter lesions consistent with MS but was stable from the previous study. She failed Rebif and Copaxone. Off monthly Solu-Medrol which was stopped. No side effects from the Tysabri. JVC titers negative. [facility] Medical History (Updated 02/01/25 @ 15:01 by Dallas Joseph MA) Leukodystrophy ADD (attention deficit disorder) Depression MCI (mild cognitive impairment) Migraine Multiple sclerosis Impaired fasting blood sugar Hereditary hemochromatosis Port-A-Cath in place Family History Father Hereditary hemochromatosis Paternal Grandmother Breast cancer Paternal Aunt Breast cancer Social History Household Members: Spouse and Family Alcohol intake: never Patient Tobacco Use Status: Never used Tobacco Tobacco use type: Cigarette e-Cigarette/Vaping Use: Never Used Second Hand Smoke Exposure: No service: No Current occupational status: employed Cognitive needs: No Hearing needs: No Vision needs: Yes Review of Systems Const Denies chills, Denies daytime sleepiness, Denies difficulty sleeping, Reports fatigue, Denies fever(s), Denies frequent falls, Denies headache(s), Denies increased appetite, Denies poor appetite, Denies snoring, Reports weakness, Denies weight gain and Denies weight loss Eyes Denies loss of vision ENT Denies vertigo, Reports dizziness, Denies headache(s) and Denies neck pain Card Denies chest pain at rest, Denies chest pain with activity, Denies syncope, Denies leg edema, Denies palpitations, Denies dyspnea and Denies dyspnea on exertion Resp Denies cough, Denies dyspnea, Denies dyspnea on exertion and Denies snoring GI Denies abdominal pain, Denies constipation, Denies heartburn, Denies diarrhea and Denies nausea Denies urinary frequency, Denies urinary incontinence and Denies urinary urgency Musc Denies abnormal gait, Denies back pain, Denies myalgias, Denies arthralgias, Denies neck pain, Denies numbness and Denies tingling Neuro Denies abnormal gait, Denies vertigo, Reports dizziness, Denies syncope, Denies frequent falls, Denies headache(s), Denies lack of coordination, Denies loss of vision, Reports memory loss, Denies numbness, Denies Other visual disturbances, Denies restless legs, Denies seizure-like activity, Denies tingling, Denies paresthesias, Reports tremor(s) and Reports weakness Psych Denies anxiety, Denies depression, Denies auditory hallucinations, Reports memory loss and Denies visual hallucinations Endo Reports fatigue and Denies palpitations Physical Exam Const Other: General Appearance:? normal, in no acute distress. Heart:? S1, S2 normal, no murmurs. Lungs:? clear anteriorly and posteriorly. Musculoskeletal:? normal. Extremities:? no edema. Psych:? alert, oriented, cognitive function intact, cooperative with exam. Neuro Other: Abnormal Neurological Findings:?slightly slow saccadic eye movements, no PARKER. 5- /5 bilateral hand grasp. Mental Status: alert and oriented X 3. Normal attention, orientation, memory, and affect. Cranial Nerves: Pupils are equal, round, and reactive to light. External ocular muscles are intact. Visual hines are full, no ptosis. Face is symmetrical, no facial weakness or droop. Facial sensations are normal. Tongue protrudes in midline. Palate elevates symmetrically. Shoulder shrugging is normal Motor Examination: As above, otherwise normal muscle tone, bulk and strength. No atrophy or fasciculations. No drift of the extended upper extremities. DTR 2+. Plantars are flexor. Straight Leg Raisin degrees. Sensory Exam: Normal light touch, temperature, pinprick, vibration, and joint- position sensations. Rhomberg sign is absent. Coordination: No ataxia. No titubation. [id number], qudd-vblt-[id number] test, and rapid alternating movements were normal. Gait Exam: Within normal limits. Cerebellar Signs: [id number] and [id number]-fpym is normal. No dysdiadochokinesia. Extrapyramidal System: No tremor, rigidity with normal facial expressions. No bradykinesia. No bradyphrenia. Normal arm swing and posture. No propulsion or retropulsion. Speech: Normal. No dysphasia or dysarthria. Assessment & Plan Assessment & Plan (1) Multiple sclerosis: Code(s): G35 - Multiple sclerosis Category: Medical Plan: Continue Tysabri 300mg IV 1 infusion IV every 4 weeks Continue meclizine 25mg 1 tablet as needed twice a day Continue lamotrigine 100mg 1 tablet at bedtime Continue sertraline 100mg 1 tablet daily Coding Level of Care Code Est Pt Level 4 (62697) Diagnoses Multiple sclerosis G35
== END 2025-02-07 08:51 | disposition home or self-care (01) ==
LOC: HO.HSM 08:21
PROVIDERS: PCP Internal Medicine; Visit Provider Registered Nurse
DX: G35 Multiple sclerosis (principal)
CPT/HCPCS: 99213

== ENCOUNTER 2025-02-10 07:55 | Outpatient (REF) | payer OTHER, SELFPAY ==
--- NOTE | ~2025-02-10 | US_ITS ---
EXAMINATION: US ABDOMEN HISTORY: R79.89 - Other specified abnormal findings of blood chemistry TECHNIQUE: Real-time grayscale ultrasound imaging of the abdomen was performed and images were reviewed. COMPARISON: There are no prior studies available for comparison. FINDINGS: Liver: The right lobe of the liver measures 16.8 cm in size. The left lobe of the liver measures 10.0 cm in size. The liver demonstrates increased echotexture, consistent with steatosis. The liver demonstrates a slightly lobulated contour which can be seen in the setting of cirrhosis. No focal mass or intrahepatic biliary ductal dilatation is identified. There is normal hepatopedal flow in the portal vein. Gallbladder and biliary tree: There is cholelithiasis. There is no wall thickening or pericholecystic fluid. There is no sonographic Bonds sign. The common bile duct is normal in caliber measuring 6 mm. Kidneys: The right kidney measures 12.3 cm in length. The left kidney measures 12.7 cm in length. The kidneys are unremarkable, without evidence of masses, hydronephrosis, or calculi. Pancreas: The pancreatic head, neck, and body are unremarkable. The pancreatic tail is obscured by bowel gas. Spleen: The spleen is normal in size and contour, measuring 10.4 cm in length. Abdominal aorta and inferior vena cava: The visualized portions of the abdominal aorta and inferior vena cava are normal in caliber. There is no free fluid in the abdomen. US/US abdomen complete IMPRESSION: 1. Hepatomegaly and hepatic steatosis. Slightly lobulated liver contour which can be seen in the setting of cirrhosis. Correlation with liver function tests is suggested. 2. Cholelithiasis. Electronically signed by: Kain Cherry MD 02/10/2025 08:40 AM EDT
== END 2025-02-10 07:56 | disposition home or self-care (01) ==
LOC: HO.US 07:55
PROVIDERS: PCP Internal Medicine; Visit Provider Internal Medicine
DX: R79.89 Other specified abnormal findings of blood chemistry (principal)
CPT/HCPCS: 76700

== ENCOUNTER → 2025-02-10 07:56 | Outpatient (BNV) | payer OTHER, SELFPAY | PROVIDERS: PCP Internal Medicine; Visit Provider Radiology Diagnostic Radiology | DX: K80.20 Calculus of gallbladder without cholecystitis without obstruction (principal); K76.0 Fatty (change of) liver, not elsewhere classified; R16.0 Hepatomegaly, not elsewhere classified | CPT/HCPCS: 76700 ==

== ENCOUNTER 2025-03-10 08:54 | Outpatient (REF) | payer OTHER, SELFPAY ==
[2025-03-10 10:35] LABS: Alanine Aminotransferase 25 U/L (0-31); Albumin Level 4.4 g/dL (3.5-5.0); Alkaline Phosphatase 62 U/L (39-117); Anion Gap 12 (12-20); Aspartate Amino Transferase 26 U/L (5-31); Blood Urea Nitrogen 17 mg/dL (9-16); Calcium 9.0 mg/dL (8.4-10.2); Carbon Dioxide 23 mmol/L (22-29); Chloride 108 mmol/L (96-108); Estimated Glomerular Filt Rate > 60; Potassium 4.4 mmol/L (3.3-5.1); Sodium 139 mmol/L (135-145); Total Protein 7.1 g/dL (6.5-8.0)
[2025-03-10 11:27] LABS: HBS Num1 0.00 mIU/mL (0-7.99); HBc Num1 0.03 S/CO (0.00-0.79); HBsAGNum1 0.49 S/CO (0.00-0.99); Hepatitis B Surface Antigen Negative (Negative); ~HepC Num1 0.10 S/CO (0.00-0.79); ~Hepatitis B Surface Antibody NONREACTIVE (Nonreactive); ~Hepatitis C Antibody Nonreactive (Nonreactive)
== END 2025-03-10 08:55 | disposition home or self-care (01) ==
LOC: HO.LAB 08:54
PROVIDERS: PCP Internal Medicine; Visit Provider Internal Medicine
DX: Z11.59 Encounter for screening for other viral diseases (principal); E78.00 Pure hypercholesterolemia, unspecified; R79.89 Other specified abnormal findings of blood chemistry
CPT/HCPCS: 36415; 80053; 86704; 86706; 86803; 87340

== ENCOUNTER 2025-04-19 08:36 | Outpatient (AMB) | payer OTHER, SELFPAY ==
[2025-04-19 08:40] VITALS: BP 114/70; PULSE 78; TEMP 36.1; O2SAT 96; BMI 39.1
--- NOTE | 2025-04-19 08:40 | MHC.PC.OV ---
Vital Signs 04/19/25 08:40 Height 5 ft 6 in Weight 242 lb 2 oz BMI 39.1 BP 114/70 Blood Pressure Location Lt brachial Position Sitting Pulse 78 Pulse Source Pulse Oximeter Temp 97.0 F Temp Source Temporal Artery Scan Pulse Oximetry (%) 96 Oxygen Delivery Method Room Air Intake Visit Reasons: DM Allergies aspirin (ASA) Allergy (Mild, Verified 04/19/25 08:43) HIVES amantadine (AMANTADINE) Allergy (Unknown, Verified 04/19/25 08:43) SINUSITIS ibuprofen Allergy (Unknown, Verified 04/19/25 08:43) Sneezing modafinil (From PROVIGIL) Allergy (Unknown, Verified 04/19/25 08:43) SINUSITIS naproxen Allergy (Unknown, Verified 04/19/25 08:43) Sneezing Butalbital-APAP Allergy (Unknown, Uncoded 04/19/25 08:43) Sneezing Tobacco use date assessed: 04/19/25 Dental Screening Dental Screen Date: 04/19/25 Did you have a dental visit in the last 12 months?: No Did you have a dental problem in the last 6 months where you did not have access to dental care?: No Was dental information given to patient?: Patient has dentist COUNTS INCLUDE 234 BEDS AT THE [facility] Medical History (Updated 04/19/25 @ 08:44 by Davon Michael MD) LFT elevation Leukodystrophy ADD (attention deficit disorder) Depression MCI (mild cognitive impairment) Migraine Multiple sclerosis Impaired fasting blood sugar Hereditary hemochromatosis Port-A-Cath in place Family History Father Hereditary hemochromatosis Paternal Grandmother Breast cancer Paternal Aunt Breast cancer Social History Household Members: Spouse and Family Alcohol intake: never Patient Tobacco Use Status: Never used Tobacco Tobacco use type: Cigarette e-Cigarette/Vaping Use: Never Used Second Hand Smoke Exposure: No service: No Current occupational status: employed Cognitive needs: No Hearing needs: No Vision needs: Yes Questionnaire PHQ-9 Over the last 2 weeks, how often have you been bothered by any of the following problems? 1. Little interest or pleasure in doing things: not at all 2. Feeling down, depressed, or hopeless: not at all 3. Trouble falling or staying asleep, or sleeping too much: not at all 4. Feeling tired or having little energy: not at all 5. Poor appetite or overeating: not at all 6. Feeling bad about yourself - or that you are a failure or have let yourself or your family down: not at all 7. Trouble concentrating on things, such as reading the newspaper or watching television: not at all 8. Moving or speaking so slowly that other people could have noticed. Or the opposite - being so fidgety or restless that you have been moving around a lot more than usual: not at all 9. Thoughts that you would be better off or of hurting yourself in some way: not at all Total score: 0 Depression Screening Interpretation: Negative Depression Screening Done: Yes Source: Developed by Drs. Kain Garsia, Nataliia Crabtree, Ollie Calix and colleagues, with an educational xander from [employer]. Thrive Questionnaire Date Thrive assessed: 12/17/24 I am a: Patient What is your living situation today?: I have a steady place to live Within the past 12 months, did the food you bought not last and you didn't have the money to get more?: I choose not to answer this question Within the past 12 months, did you worry whether your food would run out before you got money to buy more?: I choose not to answer this question Do you have trouble paying for medicines?: I choose not to answer this question Do you have trouble getting transportation to medical appointments?: I choose not to answer this question Do you have trouble paying your heating and electricity bill?: I choose not to answer this question Do you have trouble taking care of your child, family member or friend?: I choose not to answer this question Do you have trouble with day-to-day activities such as bathing, preparing meals, shopping, managing finances, etc.?: I choose not to answer this question Are you currently unemployed and looking for a job?: I choose not to answer this question Are you interested in more education?: I choose not to answer this question Please select the resources that you would like help with: None Currently or been in a relationship where the following occur: I choose not to answer THRIVE Score: 0 AUDIT C Alcohol Use Questionnaire (AUDIT-C) 1. How often do you have a drink containing alcohol?: Never 3. How often do you have six or more drinks on one occasion?: Never Total Score: 0 ADDIE-7 AMB Questionnaire ADDIE-7 Date ADDIE - 7 assessed: 09/07/24 Feeling nervous, anxious, or on edge: 0 = Not at all Not being able to stop or control worryin = Not at all Worrying too much about different things: 0 = Not at all Trouble relaxin = Not at all Being so restless that it is hard to sit still: 0 = Not at all Becoming easily annoyed or irritable: 0 = Not at all Feeling afraid as if something awful might happen: 0 = Not at all Total ADDIE-7 score (0-4 normal; 5-9 mild; 10-14 moderate; 15-21 severe): 0 Source: Developed by Drs. Kain Garsia, Nataliia Crabtree, Ollie Calix and colleagues, with an educational xander from [employer]. Physical exam (Primary Care) Tobacco/Smoking Status: Tobacco use Status Tobacco use date assessed 09/07/24 12/17/24 08:37 Patient Tobacco Use Status Never used Tobacco 12/17/24 08:37 Tobacco use type Cigarette 12/17/24 08:37 e-Cigarette/Vaping Use Never Used 12/17/24 08:37 Depression Screening Interpretation: Negative Thrive Assessment: Date of Thrive Assessment Date Thrive assessed 12/17/24 04/19/25 08:37 Currently or been in a relationship where the following occur: I choose not to answer Const General: alert; No acute distress Eyes Conjunctivae: conjunctivae normal Resp Auscultation: clear to auscultation bilaterally Cardio Rate: regular rate Rhythm: regular rhythm GI Inspection: Yes normal to inspection Extrem General: Yes normal to inspection and No edema Results AMB Hemoglobin A1c AMB Hemoglobin A1c 5.7 % Last Edit by Ira Ramos CMA on 04/19/25 08:48 Coding Level of Care Code Est Pt Level 4 (09450) Complex EM visit Add On G2211 Diagnoses Primary hypertension I10 Hypertension type: primary hypertension Hypercholesterolemia E78.00 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 Laterality: right Type 2 diabetes mellitus with hyperglycemia, without long-term current use of insulin E11.65 Diabetes mellitus senior living insulin use: without senior living use Gastroesophageal reflux disease without esophagitis K21.9 Esophagitis presence: without esophagitis Hepatic steatosis K76.0 Cholelithiasis K80.20 Breast cancer screening by mammogram Z12.31 Multiple sclerosis G35 Mild intermittent asthma without complication J45.20 Asthma complication type: uncomplicated Asthma persistence: intermittent Asthma severity: mild Assessment & Plan Assessment & Plan (1) Hypertension: Code(s): I10 - Essential (primary) hypertension Category: Medical Qualifiers: Hypertension type: primary hypertension Qualified Code(s): I10 - Essential (primary) hypertension Plan: Continue with blood pressure medication. Decrease salt intake and exercise patient is on lisinopril 20 mg once a day (2) Hypercholesterolemia: Code(s): E78.00 - Pure hypercholesterolemia, unspecified Category: Medical Plan: Avoid fried foods, chicken skin, eggs, butter margarine, pastries and meat. Be it pork or beef they have a lot of cholesterol LDL goal of less than 130 and triglyceride of less than 150 on simvastatin 5 mg at bedtime (3) Internal jugular vein thrombosis: Comment: Novembersymmetric, significant hypoattenuation throughout the right internal jugular vein, suspicious for venous thrombosis. There is prominent surrounding edema and stranding as well as retropharyngeal edema. Slight leftward mass effect on the airway, which remains patent. 2. Asymmetric thickening of the overlying right sternocleidomastoid muscle, which could represent intramuscular hematoma in the setting of recent Port-A-Cath placement. 3. Multiple asymmetrically enlarged right cervical lymph nodes are favored to be reactive. 4. 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 Code(s): I82.C19 - Acute embolism and thrombosis of unspecified internal jugular vein Category: Medical Qualifiers: Laterality: right Qualified Code(s): I82.C11 - Acute embolism and thrombosis of right internal jugular vein Plan: Events occur after MediPort placement and prolonged anticoagulation as the MediPort continues to be used. (4) Type 2 diabetes mellitus with hyperglycemia: Comment: 05/2024 [facility] Code(s): E11.65 - Type 2 diabetes mellitus with hyperglycemia Category: Medical Qualifiers: Diabetes mellitus shuttlecock assembler insulin use: without shuttlecock assembler use Qualified Code(s): E11.65 - Type 2 diabetes mellitus with hyperglycemia Plan: Decrease the amount of carbohydrate intake, pasta, bread, rice and potatoes are all sugar and that is aside from all the sweet stuff, remember that fruits are good but they are Sweet also. Hemoglobin A1c goal of less than 6.5 diet controlled (5) GERD (gastroesophageal reflux disease): Code(s): K21.9 - Gastro-esophageal reflux disease without esophagitis Category: Medical Qualifiers: Esophagitis presence: without esophagitis Qualified Code(s): K21.9 - Gastro-esophageal reflux disease without esophagitis Plan: Avoid the foods that causes that usually spicy foods, tomato products, juices, coffee, soda and foods that your sensitive to. After eating do not lie down, allow 3-4 hours before in lie down. And keep the head of bed above 30 degrees to avoid the acid from going up. (6) Hepatic steatosis: Comment: January 2025 Code(s): K76.0 - Fatty (change of) liver, not elsewhere classified Category: Medical Plan: Low-fat diet and exercise (7) Cholelithiasis: Comment: January 2025 Code(s): K80.20 - Calculus of gallbladder without cholecystitis without obstruction Category: Medical Plan: Low-fat diet (8) Breast cancer screening by mammogram: Code(s): Z12.31 - Encounter for screening mammogram for malignant neoplasm of breast Category: Medical Plan: Reminded about mammogram (9) Multiple sclerosis: Code(s): G35 - Multiple sclerosis Category: Medical (10) Asthma: Code(s): J45.909 - Unspecified asthma, uncomplicated Category: Medical Qualifiers: Asthma complication type: uncomplicated Asthma persistence: intermittent Asthma severity: mild Qualified Code(s): J45.20 - Mild intermittent asthma, uncomplicated Plan History of Present Illness The patient is a 49-year-old female presenting for a follow-up visit. The patient has a history of obesity, with a recent weight loss of 16 pounds attributed to the use of Tirzepatide injections, which she administers weekly. She reports no significant side effects such as nausea or vomiting from the medication, although there has been a plateau in weight loss recently. 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 She has heterozygous positivity for the C2-A2-Y mutation and hereditary hemochromatosis, which necessitates continued monitoring and management. The patient has multiple sclerosis and follows up with neurology, being treated with medications including sabrine, meclizine, lamotrigine, and saprogen. She has a history of generalized anxiety disorder, gastroesophageal reflux disease, hypertension, diabetes mellitus, hypercholesterolemia, asthma, hepatic steatosis, and cholelithiasis. Her last abdominal ultrasound in January 2024 showed hepatomegaly and hepatic steatosis with cholelithiasis. Her blood work in September showed a normal blood count with mild thrombocytopenia, normal renal function, and mildly elevated blood sugar at 108 mg/dL, with a normal hemoglobin A1c earlier this year. Her cholesterol levels were last checked in September 2024, with an LDL of 116 mg/dL. Health Maintenance - Colonoscopy last performed in 2020, reminder for follow-up screening. - Mammogram reminder discussed. - Discussion on maintaining a low-fat diet and regular exercise to manage hepatic steatosis and weight. - Vaccination discussion included flu shots and shingles vaccine. Social History - Exercise: Engages in weight management through diet and exercise. Review of Systems - Gastrointestinal: Denies heartburn exacerbation with current medication. - Cardiovascular: Reports good blood pressure control. - General: Reports weight loss of 16 pounds. Physical Exam - Cardiovascular: Blood pressure noted to be on the lower side, considered good for the patient. - General: Nice pulse observed. Results - Labs: Normal blood count with mild thrombocytopenia, normal renal function, mildly elevated blood sugar at 108 mg/dL, normal hemoglobin A1c earlier this year. - Labs: Cholesterol levels last checked in September 2024, with an LDL of 116 mg/dL. - Imaging: Abdominal ultrasound in January 2024 showed hepatomegaly and hepatic steatosis with cholelithiasis. Plan Patient was informed and verbally consented to the use of an ambient scribe for clinic note documentation during this visit. 1. Obesity The patient is currently on Tirzepatide injections for weight management, which has resulted in a 16-pound weight loss. There is a plan to increase the dosage due to a recent plateau in weight loss, with monitoring for potential side effects such as nausea. 2. 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 Continued monitoring is necessary due to heterozygous positivity for the C2-A2-Y mutation and hereditary hemochromatosis. 3. Multiple Sclerosis The patient follows up with neurology for multiple sclerosis management and is on medications including sabrine, meclizine, lamotrigine, and saprogen. 4. Hepatic Steatosis The patient has hepatic steatosis, as shown in the abdominal ultrasound, and is advised to maintain a low-fat diet and regular exercise to manage the condition. 5. Cholelithiasis The patient has cholelithiasis, and it is recommended to monitor for symptoms such as pain, which may necessitate surgical intervention if they occur. 6. Diabetes Mellitus The patient's diabetes is currently diet-controlled, with a hemoglobin A1c goal of less than 6.5%. Discussion Notes During the visit, we discussed the patient's ongoing management of obesity with Tirzepatide, noting the recent weight loss and the plan to adjust the dosage due to a plateau. We reviewed the need for continued anticoagulation therapy for internal jugular vein thrombosis and the implications of the patient's genetic predispositions. The importance of maintaining a low-fat diet and regular exercise for managing hepatic steatosis was emphasized, along with monitoring for symptoms related to cholelithiasis. Preventative care measures, including scheduling a follow-up colonoscopy and mammogram, were also discussed. Patient Instructions - Continue Tirzepatide injections and monitor for any side effects. - Maintain a low-fat diet and regular exercise to manage weight and hepatic steatosis. - Monitor for symptoms of cholelithiasis, such as abdominal pain, and report if they occur. - Schedule follow-up appointments for colonoscopy and mammogram. - Consider flu and shingles vaccinations if not already done. Orders: Orders Microalbumin, Random (w Creat) 3 Months . - Type 2 diabetes mellitus with hyperglycemia Thyroid Stimulating Hormone 3 Months E11. - Type 2 diabetes mellitus with hyperglycemia Lipid Panel 3 Months E11. - Type 2 diabetes mellitus with hyperglycemia, E78.00 - Pure hypercholesterolemia, unspecified Vitamin B12 and Folate 3 Months E11. - Type 2 diabetes mellitus with hyperglycemia Hemoglobin A1c 3 Months E11. - Type 2 diabetes mellitus with hyperglycemia AMB Hemoglobin A1c Today Z13.9 - Encounter for screening, unspecified Complete Blood Count Auto Diff 3 Months . - Type 2 diabetes mellitus with hyperglycemia Comprehensive Met. Panel 3 Months . - Type 2 diabetes mellitus with hyperglycemia Creatinine Urine 3 Months . - Type 2 diabetes mellitus with hyperglycemia Free T4 (Free Thyroxine) 3 Months E11. - Type 2 diabetes mellitus with hyperglycemia Medications: Changed From tirzepatide (Mounjaro) for 4 weeks 2.5 mg (0.5 mL) subcut QWEEK 2 mL 2RF E11.65 - Type 2 diabetes mellitus with hyperglycemia To tirzepatide for 4 weeks 5 mg (0.5 mL) subcut QWEEK 2 mL 2RF E11.65 - Type 2 diabetes mellitus with hyperglycemia
== END 2025-04-19 09:01 | disposition home or self-care (01) ==
PROVIDERS: PCP Internal Medicine; Visit Provider Internal Medicine
DX: I10 Essential (primary) hypertension (principal); I82.C11 Acute embolism and thrombosis of right internal jugular vein; E11.65 Type 2 diabetes mellitus with hyperglycemia; G35 Multiple sclerosis; E78.00 Pure hypercholesterolemia, unspecified; K21.9 Gastro-esophageal reflux disease without esophagitis; K76.0 Fatty (change of) liver, not elsewhere classified; K80.20 Calculus of gallbladder without cholecystitis without obstruction; Z12.31 Encounter for screening mammogram for malignant neoplasm of breast; J45.20 Mild intermittent asthma, uncomplicated

== ENCOUNTER → 2025-04-19 08:36 | Outpatient (BNVA) | payer OTHER, SELFPAY | PROVIDERS: PCP Internal Medicine; Visit Provider Internal Medicine | DX: E11.65 Type 2 diabetes mellitus with hyperglycemia (principal); I10 Essential (primary) hypertension; E78.00 Pure hypercholesterolemia, unspecified; I82.C11 Acute embolism and thrombosis of right internal jugular vein; K21.9 Gastro-esophageal reflux disease without esophagitis; K76.0 Fatty (change of) liver, not elsewhere classified; K80.20 Calculus of gallbladder without cholecystitis without obstruction; G35 Multiple sclerosis; J45.20 Mild intermittent asthma, uncomplicated; E66.9 Obesity, unspecified | CPT/HCPCS: 83036; 96127 ==

== ENCOUNTER 2025-07-05 08:32 | Outpatient (AMB) | payer OTHER, SELFPAY ==
--- NOTE | 2025-07-05 08:42 | MHC.OFFVIS ---
Intake Visit Reasons: MS follow up Allergies aspirin (ASA) Allergy (Mild, Verified 04/19/25 08:43) HIVES amantadine (AMANTADINE) Allergy (Unknown, Verified 04/19/25 08:43) SINUSITIS ibuprofen Allergy (Unknown, Verified 04/19/25 08:43) Sneezing modafinil (From PROVIGIL) Allergy (Unknown, Verified 04/19/25 08:43) SINUSITIS naproxen Allergy (Unknown, Verified 04/19/25 08:43) Sneezing Butalbital-APAP Allergy (Unknown, Uncoded 04/19/25 08:43) Sneezing Medication List - Last Reconciled 07/05/25 by Jose Luis Victoria MD albuterol sulfate 90 mcg/actuation 2 puffs inhalation Q4-6H PRN apixaban (Eliquis) 5 mg PO DAILY dextroamphetamine sulfate 10 mg PO BID fluticasone propion-salmeterol 100-50 mcg/dose (Advair Diskus) 1 inh inhalation BID lamotrigine 100 mg PO DAILY levocetirizine (Xyzal) 5 mg PO DAILY lisinopril 20 mg PO DAILY meclizine 25 mg PO BID PRN natalizumab (Tysabri) 300 mg (15 mL) IV Q4W sertraline 100 mg PO DAILY simvastatin 5 mg PO BEDTIME HPI Comments Details: She was doing okay. Feels fatigued most of the time. Fell tripping on some furniture 3 weeks ago . Has had some headaches since then. Hit head on dresser but no LOC. Using Tylenol 2x3 for headaches. MS stable, no new symptoms. Doing okay with Tysabri infusions, last infusion was 06/11/2025. Still working 3 jobs. Started new position at job about 2 months ago and stress is better. Memory was okay, some word finding and speech difficulties with stress. Sleep was okay, but tired during the day. Mood was okay. No significant dizziness. No vision changes. Eyes are sensitive to bright light including sun and can trigger headaches. No significant headaches recently. Has some trouble with left leg, stumbles at times. No falls. Has had elevated LFTs. Was found to have blood clot and got new port. Following with hematology, taking Eliquis daily day. Was off Tysabri from 07/2022 to 10/2022, now back on it since 10/28/22 without side effects. Some increased urinary frequency. No incontinence. Chronic sinus issues/allergies, has seen ENT and had several sinus surgeries in past. Moodiness is better. LBP is mostly under control. Has Karthikeyan at home and trying to start exercise routine. Was having some emotional issues with anger and some depression issues but that is better. Needs a calendar and a list of to do things or she forgets. Fatigue is always there and unchanged. She has relapsing remitting multiple sclerosis of more than 15 years duration. MRI in October 2011 showed numerous periventricular and subcortical white matter lesions consistent with MS but was stable from the previous study. She failed Rebif and Copaxone. Off monthly Solu-Medrol which was stopped. No side effects from the Tysabri. JVC titers negative. [facility] Medical History (Updated 04/19/25 @ 08:44 by Davon Michael MD) LFT elevation Leukodystrophy ADD (attention deficit disorder) Depression MCI (mild cognitive impairment) Migraine Multiple sclerosis Impaired fasting blood sugar Hereditary hemochromatosis Port-A-Cath in place Family History Father Hereditary hemochromatosis Paternal Grandmother Breast cancer Paternal Aunt Breast cancer Social History Household Members: Spouse and Family Alcohol intake: never Patient Tobacco Use Status: Never used Tobacco Tobacco use type: Cigarette e-Cigarette/Vaping Use: Never Used Second Hand Smoke Exposure: No service: No Current occupational status: employed Cognitive needs: No Hearing needs: No Vision needs: Yes Review of Systems Const Reports fatigue and Reports lethargy Endo Reports fatigue Physical Exam Const Other: General Appearance:? normal, in no acute distress. Heart:? S1, S2 normal, no murmurs. Lungs:? clear anteriorly and posteriorly. Musculoskeletal:? normal. Extremities:? no edema. Psych:? alert, oriented, cognitive function intact, cooperative with exam. Neuro Other: Abnormal Neurological Findings:?slightly slow saccadic eye movements, no PARKER. 5-/5 bilateral hand grasp. Mental Status: alert and oriented X 3. Normal attention, orientation, memory, and affect. Cranial Nerves: Pupils are equal, round, and reactive to light. External ocular muscles are intact. Visual hines are full, no ptosis. Face is symmetrical, no facial weakness or droop. Facial sensations are normal. Tongue protrudes in midline. Palate elevates symmetrically. Shoulder shrugging is normal Motor Examination: As above, otherwise normal muscle tone, bulk and strength. No atrophy or fasciculations. No drift of the extended upper extremities. DTR 2+. Plantars are flexor. Straight Leg Raisin degrees. Sensory Exam: Normal light touch, temperature, pinprick, vibration, and joint-position sensations. Rhomberg sign is absent. Coordination: No ataxia. No titubation. Geceom-gu-tchb, lopr-ghbf-fybq test, and rapid alternating movements were normal. Gait Exam: Within normal limits. Cerebellar Signs: [id number]-[id number] and dkbe-cy-[id number] is normal. No dysdiadochokinesia. Extrapyramidal System: No tremor, rigidity with normal facial expressions. No bradykinesia. No bradyphrenia. Normal arm swing and posture. No propulsion or retropulsion. Speech: Normal. No dysphasia or dysarthria. Assessment & Plan Assessment & Plan (1) Multiple sclerosis: Code(s): G35 - Multiple sclerosis Category: Medical Plan: Continue Tysabri 300mg IV 1 infusion IV every 4 weeks Continue meclizine 25mg 1 tablet as needed twice a day Continue lamotrigine 100mg 1 tablet at bedtime Continue sertraline 100mg 1 tablet daily Plan continue current meds. F/U MRI Brain and C spine at next visit in 6 months. Medications: New dextroamphetamine sulfate administer doses at least 4-6 hours apart 10 mg PO BID 60 tabs 0RF Coding Level of Care Code Est Pt Level 4 (27249) Diagnoses Multiple sclerosis G35
== END 2025-07-05 08:58 | disposition home or self-care (01) ==
LOC: HO.HSM 08:32
PROVIDERS: PCP Internal Medicine; Visit Provider Psychiatry & Neurology Neurology
DX: G35.D Multiple sclerosis, unspecified (principal)
CPT/HCPCS: 99214